=== PATIENT | female | born 1990 | race Caucasian/White ===

== ENCOUNTER → 2019-03-04 08:25 | Outpatient (CLI) | payer OTHER, SELFPAY ==
[2019-03-04 08:14] VITALS: BMI 24.4
[2019-03-04 09:19] LABS: hCG Titer Quant., Serum 368 mIU/mL (1-3)
== END ==
PROVIDERS: Referring Provider Obstetrics & Gynecology; Visit Provider Obstetrics & Gynecology
DX: N91.2 Amenorrhea, unspecified (principal)
CPT/HCPCS: 36415; 84702

== ENCOUNTER → 2019-03-04 11:04 | Outpatient (CLI) | payer OTHER, SELFPAY ==
[2019-03-04 08:14] VITALS: BMI 24.4
== END ==
PROVIDERS: Referring Provider Obstetrics & Gynecology; Visit Provider Obstetrics & Gynecology
DX: N39.0 Urinary tract infection, site not specified (principal)
CPT/HCPCS: 87086; 87088

== ENCOUNTER → 2019-03-06 07:59 | Outpatient (CLI) | payer OTHER, SELFPAY ==
[2019-03-04 08:14] VITALS: BMI 24.4
[2019-03-06 09:32] LABS: hCG Titer Quant., Serum 340 mIU/mL (1-3)
== END ==
PROVIDERS: Referring Provider Obstetrics & Gynecology; Visit Provider Obstetrics & Gynecology
DX: N91.2 Amenorrhea, unspecified (principal)
CPT/HCPCS: 36415; 84702

== ENCOUNTER 2019-03-07 07:17 | Emergency (ER) | payer OTHER, SELFPAY ==
[2019-03-04 08:14] VITALS: BMI 24.4
[2019-03-07 07:18] VITALS: BP 121/82; PULSE 88; RESP 18; TEMP 37.2; O2SAT 99; BMI 22.1
--- NOTE | 2019-03-07 07:32 | US_ITS ---
STUDY: FIRST TRIMESTER OBSTETRICAL ULTRASOUND REASON FOR EXAM: Female, 29 years old. Recent miscarriage. Examination was obtained to assess for possible retained products of conception. LMP: January 25, 2019. TECHNIQUE: Transvaginal TECHNICAL QUALITY: Adequate. PRIOR ULTRASOUND: None. FINDINGS: The uterus measures 8.1 cm x 5.0 cm x 4.1 cm the endometrium measures 12 mm in thickness and is hyperechoic. No retained products of conception are seen.. There is no demonstrated uterine fibroid. The cervix is closed. The right ovary measures 2.6 cm x 2.5 cm x 1.6 cm. There is no right ovarian cyst. There is no visualized right adnexal mass or complex lesion. The left ovary measures 2.0 cm x 1.9 cm x 1.2 cm. There is no left ovarian cyst. There is no visualized left adnexal mass or complex lesion. There is no fluid in the cul de sac. US/Transvaginal w/Preg US IMPRESSION: No sonographic evidence for retained products of conception. Electronically Signed: Tima Bill, at 8:59 EDT , Service support ,
[2019-03-07] MEDS: 0.9% Normal Saline 1,000 ML 1000 ML IV (07:44)
[2019-03-07 07:56] LABS: Absolute Lymphocyte Count 1.44 X10^3/uL (0.83-4.51); Absolute Neutrophil Count 6.3 X10^3/uL (2.0-7.7); Basophil# 0.02 X10^3/uL; Basophil% 0.2 % (0-1); Eosinophil# 0.02 X10^3/uL; Eosinophils% 0.2 % (0-5); Hematocrit 37.5 % (37-47); Hemoglobin 12.9 g/dL (12.0-15.0); Lymphocyte # 1.44 X10^3/ul (4.0); Lymphocyte % 17.5 % (19-41); Mean Corp Hgb Conc 34.4 g/dL (32-36); Mean Corpuscular Hgb 32.3 pg (27.0-32.0); Mean Corpuscular Volume 93.8 fL (81-99); Mean Platelet Vol. 9.8 fl (6.2-12.0); Monocyte# 0.45 X10^3/uL; Monocyte% 5.5 % (0-10); NRBC Flagged by Analyzer 0 % (0-5); Neutrophil # 6.27 X10^3/uL (2.7-7.7); Neutrophil % 76.4 % (47-70); Platelet Count 251 K/mm3 (150-450); RBC Distribution Width CV 11.5 % (11.6-14.6); RBC Distribution Width SD 39.1 fl (35.1-43.9); White Blood Count 8.2 K/mm3 (4.4-11.0)
--- NOTE | 2019-03-07 07:59 | ED.DCSUM_ITS ---
- ER Visit Summary Date of Service: 03/07/19 Chief Complaint: Weakness History of Present Illness: The patient is a 29 F who presents with generalized weakness, decreased sleep, decreased PO intake, and increasing vaginal bleeding. Last week, she found that she was . She estimated that she was around 5 weeks by last menstrual period. She was having some bleeding and cramping as well as UTI symptoms. She had a serum hCG in the 300s on Sunday earlier this week, and then 2 days later her numbers have dropped by about 40 points. She was advised that she was likely having a miscarriage. She says this is her first . She does not know her blood type. She came to the ED today because her symptoms are worsening and she called her [facility]. She did not get a hold of her [employer] [facility] [facility], and so she came to the ED. Physical Examination: Afebrile and vital signs unremarkable. Alert and oriented. Heart regular. Lungs clear. Abdomen soft and nontender. Skin appears unremarkable. Test Results: We will check basic labs, serum quant, type and screen. Will also check an ultrasound given her worsening bleeding and increasing symptoms. Emergency Department Course and Treatment: Patient was treated with IV fluids. N.p.o. We will check labs and ultrasound. Will discuss with [facility]. CBC normal. Rh+. Quant is 286. Labs otherwise normal. Vitals stable. Ultrasound shows no evidence of retained products. Patient was discussed with Dr. Wilde. No further recommendations today. Patient may safely be discharged home. Return for worsening bleeding or pain. This does not sound like an ectopic . Patient will follow-up in the office next week. Treatment Plan: As above Disposition: Discharge Impression: 1. Miscarriage This note was generated with [employer]versation [employer] software. It may contain incorrect words, spelling, and punctuation that were not noted in review of the chart prior to signing ED Disposition - Plan for ED Patient: Referrals: Care Physician,No Primary [Primary Care Provider] -
[2019-03-07 08:06] LABS: Anion Gap 9 (5-15); BUN 11 mg/dL (7-18); BUN/Creat Ratio 14.3 RATIO (10-20); Calcium,Total 9.2 mg/dL (8.5-10.1); Chloride 109 mmol/L (98-107); Creatinine, Serum 0.77 mg/dL (0.55-1.02); EST Glomerular Filtration Rate 95 mL/min (>60); Est Glom Filt Rate - Afr Amer 115 mL/min (>60); Estimated Creatinine Clearance 89.98 ml/min; Glucose 95 mg/dL (74-106); Potassium 3.5 mmol/L (3.5-5.1); Sodium Level 142 mmol/L (136-145)
[2019-03-07 08:11] LABS: hCG Titer Quant., Serum 286 mIU/mL (1-3)
--- NOTE | 2019-03-07 09:16 | ED.DEP ---
ED Disposition - Plan for ED Patient: Instructions: Miscarriage Referrals: Brea Wilde MD [STAFF PHYSICIAN] -
[2019-03-07 09:43] VITALS: BP 110/70; PULSE 78; RESP 17; O2SAT 97
== END 2019-03-07 09:44 | disposition home or self-care (01) ==
PROVIDERS: Emergency Provider Emergency Medicine
DX: O03.9 Complete or unspecified spontaneous abortion without complication (principal)
CPT/HCPCS: 76817; 80048; 84702; 85025; 86900; 86901; 99283; J7030; A4216

== ENCOUNTER → 2019-03-26 07:51 | Outpatient (CLI) | payer OTHER, SELFPAY ==
[2019-03-07 07:18] VITALS: BMI 22.1
[2019-03-26 09:14] LABS: hCG Titer Quant., Serum 5 mIU/mL (1-3)
== END ==
PROVIDERS: Nurse Practitioner Women's Health; Referring Provider Obstetrics & Gynecology; Visit Provider Obstetrics & Gynecology
DX: N91.2 Amenorrhea, unspecified (principal)
CPT/HCPCS: 36415; 84702

== ENCOUNTER → 2019-07-21 13:42 | Outpatient (CLI) | payer OTHER, SELFPAY ==
[2019-07-21 11:39] VITALS: BMI 22.1
[2019-07-21 16:30] LABS: Chlamydia Trachomatis by PCR Negative (Negative); Neisserai gonorrhoeae by PCR Negative (Negative); Probe Check PASS; Sample Adequacy Control PASS; Specimen Processing Control PASS
[2019-07-24 11:08] LABS: HPV Reflexed? NOT INDICATED
== END ==
PROVIDERS: Visit Provider Nurse Practitioner Women's Health
DX: Z34.90 Encounter for supervision of normal pregnancy, unspecified, unspecified trimester (principal); Z12.4 Encounter for screening for malignant neoplasm of cervix
CPT/HCPCS: 87086; 87088; 87491; 87591; 88175; G0145

== ENCOUNTER → 2019-08-22 08:55 | Outpatient (CLI) | payer OTHER, SELFPAY ==
[2019-08-22 08:33] VITALS: BMI 22.1
[2019-08-22 09:18] LABS: Absolute Lymphocyte Count 1.56 X10^3/uL (0.83-4.51); Absolute Neutrophil Count 8.3 X10^3/uL (2.0-7.7); Basophil# 0.02 X10^3/uL; Basophil% 0.2 % (0-1); Eosinophil# 0.07 X10^3/uL; Eosinophils% 0.7 % (0-5); Hematocrit 34.6 % (37-47); Lymphocyte # 1.56 X10^3/ul (4.0); Lymphocyte % 14.8 % (19-41); Mean Corp Hgb Conc 34.7 g/dL (32-36); Mean Corpuscular Hgb 32.6 pg (27.0-32.0); Mean Platelet Vol. 9.6 fl (6.2-12.0); Monocyte# 0.52 X10^3/uL; Monocyte% 4.9 % (0-10); NRBC Flagged by Analyzer 0 % (0-5); Neutrophil # 8.32 X10^3/uL (2.7-7.7); Neutrophil % 78.7 % (47-70); Platelet Count 220 K/mm3 (150-450); RBC Distribution Width CV 12.3 % (11.6-14.6); RBC Distribution Width SD 42.4 fl (35.1-43.9); Red Blood Count 3.68 M/mm3 (4.2-5.4); White Blood Count 10.6 K/mm3 (4.4-11.0)
[2019-08-22 10:56] LABS: HIV - WCH Non-Reactive (Nonreactive); Hepatitis B Surface Antigen Non-Reactive (Nonreactive); Hepatitis C Antibody Non-Reactive (Nonreactive); Rubella IgG 75.4 IU/mL
[2019-08-28 00:26] LABS: Rapid Plasmin Reagin (RPR) NONREACTIVE (NONREACTIVE)
== END ==
PROVIDERS: Nurse Practitioner Women's Health; Referring Provider Obstetrics & Gynecology; Visit Provider Obstetrics & Gynecology
DX: Z34.90 Encounter for supervision of normal pregnancy, unspecified, unspecified trimester (principal)
CPT/HCPCS: 36415; 85025; 86592; 86703; 86762; 86803; 86850; 86900; 86901; 87340

== ENCOUNTER → 2019-12-02 08:07 | Outpatient (CLI) | payer OTHER, SELFPAY ==
[2019-11-05 10:53] VITALS: BMI 22.1
[2019-12-02 08:39] LABS: Absolute Lymphocyte Count 1.83 X10^3/uL (0.83-4.51); Absolute Neutrophil Count 8.1 X10^3/uL (2.0-7.7); Basophil# 0.02 X10^3/uL; Basophil% 0.2 % (0-1); Eosinophil# 0.08 X10^3/uL; Eosinophils% 0.7 % (0-5); Hematocrit 30.5 % (37-47); Hemoglobin 10.2 g/dL (12.0-15.0); Lymphocyte # 1.83 X10^3/ul (4.0); Lymphocyte % 16.9 % (19-41); Mean Corp Hgb Conc 33.4 g/dL (32-36); Mean Corpuscular Hgb 32.8 pg (27.0-32.0); Mean Corpuscular Volume 98.1 fL (81-99); Mean Platelet Vol. 10.2 fl (6.2-12.0); Monocyte# 0.66 X10^3/uL; Monocyte% 6.1 % (0-10); NRBC Flagged by Analyzer 0 % (0-5); Neutrophil # 8.12 X10^3/uL (2.7-7.7); Neutrophil % 75.3 % (47-70); Platelet Count 228 K/mm3 (150-450); RBC Distribution Width CV 12.6 % (11.6-14.6); RBC Distribution Width SD 45.1 fl (35.1-43.9); Red Blood Count 3.11 M/mm3 (4.2-5.4); White Blood Count 10.8 K/mm3 (4.4-11.0)
[2019-12-02 08:53] LABS: Glucose Challenge Gest 1H 50g 105 mg/dL (70-140)
== END ==
PROVIDERS: Referring Provider Obstetrics & Gynecology; Visit Provider Obstetrics & Gynecology
DX: Z34.80 Encounter for supervision of other normal pregnancy, unspecified trimester (principal)
CPT/HCPCS: 36415; 82950; 85025

== ENCOUNTER → 2020-01-15 09:27 | Outpatient (CLI) | payer OTHER, SELFPAY ==
[2020-01-15 09:24] VITALS: BMI 22.1
[2020-01-15 09:42] LABS: Absolute Lymphocyte Count 1.76 X10^3/uL (0.83-4.51); Absolute Neutrophil Count 8.5 X10^3/uL (2.0-7.7); Basophil# 0.02 X10^3/uL; Basophil% 0.2 % (0-1); Eosinophil# 0.07 X10^3/uL; Eosinophils% 0.6 % (0-5); Hematocrit 33.8 % (37-47); Hemoglobin 11.4 g/dL (12.0-15.0); Lymphocyte # 1.76 X10^3/ul (4.0); Lymphocyte % 15.8 % (19-41); Mean Corp Hgb Conc 33.7 g/dL (32-36); Mean Corpuscular Hgb 33.7 pg (27.0-32.0); Mean Platelet Vol. 10.3 fl (6.2-12.0); Monocyte# 0.62 X10^3/uL; Monocyte% 5.6 % (0-10); NRBC Flagged by Analyzer 0 % (0-5); Neutrophil # 8.53 X10^3/uL (2.7-7.7); Neutrophil % 76.8 % (47-70); Platelet Count 211 K/mm3 (150-450); RBC Distribution Width CV 14.1 % (11.6-14.6); RBC Distribution Width SD 51.5 fl (35.1-43.9); Red Blood Count 3.38 M/mm3 (4.2-5.4); White Blood Count 11.1 K/mm3 (4.4-11.0)
== END ==
PROVIDERS: Referring Provider Obstetrics & Gynecology; Visit Provider Obstetrics & Gynecology
DX: D50.9 Iron deficiency anemia, unspecified (principal)
CPT/HCPCS: 36415; 85025

== ENCOUNTER → 2020-02-02 11:58 | Outpatient (CLI) | payer OTHER, SELFPAY ==
[2020-02-02 09:16] VITALS: BMI 22.1
== END ==
PROVIDERS: Referring Provider Obstetrics & Gynecology; Visit Provider Obstetrics & Gynecology
DX: Z34.80 Encounter for supervision of other normal pregnancy, unspecified trimester (principal)
CPT/HCPCS: 87081

== ENCOUNTER 2020-02-27 11:45 | Inpatient (IN) | payer OTHER, SELFPAY ==
[2020-02-27] VITALS (38 sets, daily range): BP systolic 107–176; BP diastolic 55–117; PULSE 39–134; TEMP 36.1–37; O2SAT 84–100; BMI 22.1; BMI 29.7
[2020-02-27 12:37] LABS: Absolute Lymphocyte Count 1.35 X10^3/uL (0.83-4.51); Absolute Neutrophil Count 7.1 X10^3/uL (2.0-7.7); Basophil# 0.01 X10^3/uL; Basophil% 0.1 % (0-1); Eosinophil# 0.08 X10^3/uL; Eosinophils% 0.9 % (0-5); Hemoglobin 12.4 g/dL (12.0-15.0); Lymphocyte # 1.35 X10^3/ul (4.0); Lymphocyte % 14.6 % (19-41); Mean Corp Hgb Conc 34.4 g/dL (32-36); Mean Corpuscular Hgb 33.8 pg (27.0-32.0); Mean Corpuscular Volume 98.1 fL (81-99); Mean Platelet Vol. 10.8 fl (6.2-12.0); Monocyte# 0.64 X10^3/uL; Monocyte% 6.9 % (0-10); NRBC Flagged by Analyzer 0 % (0-5); Neutrophil # 7.07 X10^3/uL (2.7-7.7); Neutrophil % 76.7 % (47-70); Platelet Count 201 K/mm3 (150-450); RBC Distribution Width CV 13.2 % (11.6-14.6); RBC Distribution Width SD 47.5 fl (35.1-43.9); Red Blood Count 3.67 M/mm3 (4.2-5.4); White Blood Count 9.2 K/mm3 (4.4-11.0)
[2020-02-27] MEDS: 0.9% Saline Lock 10 ML Syringe IV (21:30)
[2020-02-27] MEDS: Lactated Ringers 500 ML 999 ML IV (21:50)
[2020-02-27] MEDS: Lactated Ringers 1,000 ML 50 ML IV (21:50)
[2020-02-27] MEDS: fentaNYL-bupivacaine (epidural) 100 ML BAG EPIDURAL (22:47)
[2020-02-28] VITALS (62 sets, daily range): BP systolic 99–125; BP diastolic 53–76; PULSE 71–125; RESP 16–18; TEMP 36.5–37.6; O2SAT 93–100
--- NOTE | 2020-02-28 01:45 | PCM.HPOB.BLA ---
- Problem List (1) Dysthymia Status: Acute Comment: zoloft counseling; stable (2) Influenza vaccination declined Status: Acute Comment: 02/27/2020sc (3) Status: Acute Qualifiers: Comment: Declines carrier, genetic, and ntd screening. Anatomy normal (4) Supervision of other normal Status: Acute Comment: PRR JOSSELIN 02/28/20 girl Tashia Spouse:Dung (5) SROM (spontaneous rupture of membranes) Status: Acute History and Physical Date of Admission: 02/28/20 Intake Vital Signs 02/27/20 BMI 22.1 02/27/20 Height 5 ft 3 in 02/27/20 Weight: 169 lb 02/27/20 BMI 29.9 02/27/20 BP 120/88 H 01/15/20 BMI 22.1 Intake Visit Reasons: 39 WK OB Chief Complaint: est ob Community Health Worker Required: No Is patient in pain?: No Allergies No Known Allergies Allergy (Verified 02/27/20 09:51) Medications prenat.vits,efren,arc-kwvr-fnvce 1 tab PO DAILY 07/21/19 [History Confirmed 02/27/20] sertraline 50 mg tablet 50 mg PO DAILY #90 tab 10/10/19 [Rx Confirmed 02/27/20] ferrous sulfate 325 mg (65 mg iron) tablet 325 mg PO DAILY 12/15/19 [History Confirmed 02/27/20] Last Menstral Period: 05/24/19 Zika: Zika virus screening: Negative : No PFSH PFSH Medical History (Acute) Depression (Acute) Hx of one miscarriage (Acute) Family History Grandfather Cancer lung Colon cancer Father Myocardial infarction Aunt Cancer lung Social History (Updated 02/27/20 @ 10:[address] Brea Wilde MD) Smoking Status: Never smoker alcohol intake: current details: social substance use type: does not use caffeine: Yes what type of physical activity do you participate in: walking seatbelt use: always do you feel safe at home: Yes additional social history: Dung- Works at [employer] Pregancy History 2 Elective abortions Hx Para 0 Spontaneous abortions 1 Hx # Term Pregnancies Ectopic pregnancies Hx # Pregnancies Multiple births # of living children HPI 39 WK OB: Details: KARLEE ROTHMAN is a 30 year old who presents for routine OB visit. She is a @ 39w6d presents with SROM clear fluid to l and d. OB Visit JOSSELIN Calculator Estimated Delivery Date Method Current WG Current Estimate 02/28/20 Ultrasound #1 39w 6d Other Estimates 02/28/20 LMP (Certain) 39w 6d Expected Delivery Route/Plan Labor support person Dung CB and classes complete Pain management preference option minimal intervention, Desires tub in labor. cut cord/dad catch maybe yes PP control plan discuss possible routes of delivery and associated risks r/b/i/a to operative vaginal delivery including forceps and vacuum assisted delivery discussed. Also discussed indications for section. special requests: plan scanned into chart: Delay/avoid AROM as much as possible. Avoid immediate PP pitocin (knows may be needed if heavy bleeding). Declines hep B vaccine and eye ointment for baby, wants to wait until baby at home to give bath. Specific Issue/Plans flu vaccine declined tdap vaccine given rhogam na LARC form signed declines movement and labor precautions reviewed. Problem list reviewed and updated with the most current details and appropriate orders placed. Continue routine care and follow up unless otherwise noted in visit notes/problem list details. Initial Weight: 134 lb Date EGA Weight BP Urine Prot Glucose FHR FuHt Pres Dilation Effaced St Visit Note 07/21/19 8w 2d 134 lb 6 oz (+6 oz) 90/60 168 08/22/19 12w 6d 134 lb (+0 oz) 96/60 Negative Negative 160 SM- no vb cramping, still some nausea 09/16/19 16w 3d 138 lb (+4 lb) 116/82 Negative Negative 150 SM- no vb cramping 11/05/19 23w 4d 148 lb 8 oz (+14 lb 8 oz) 110/64 Negative Negative 150 SM- no vb cramping. 12/02/19 27w 3d 156 lb (+22 lb) 104/70 Negative Negative 143 27 MH-No vB, LOF. Good FM. 28 wk labs and tdap. 12/15/19 29w 2d 160 lb (+26 lb) 122/70 Negative Negative 140 29 SM- no vb lof good fm no regular ctx 12/29/19 31w 2d 161 lb (+27 lb) 110/60 Negative Negative 140 32 SM- no vb lof good fm no regular ctx 01/15/20 33w 5d 163 lb (+29 lb) 104/70 Negative Negative 140 34 SM- no vb lof good fm no regular ctx 01/26/20 35w 2d 165 lb (+31 lb) 120/84 Negative Negative 150 35 SM- no vb lof good fm no regular ctx 02/02/20 36w 2d 164 lb (+30 lb) 120/72 Negative Negative 125 36 GP- no vb, lof, dfm, contractions. Planning on making plan this weekend. GP- no vb, lof, dfm, contractions. Labor precautions reviewed. GP- no vb, lof, dfm, contractions. Labor precautions reviewed. GBS done today. 02/13/20 37w 6d 164 lb (+30 lb) 104/66 130 37 Cephalic 1 50 -2 GP - No LOF, VB, DFM, ctx. plan reviewed today and scanned into chart. 02/18/20 38w 4d 166 lb (+32 lb) 120/66 Negative Negative 135 38 Cephalic 1 60 -2 GP - No LOF, DFM, VB. No regular contractions. Declined membrane sweeping - wants to go into labor naturally. 02/27/20 39w 6d 169 lb (+35 lb) 120/88 Negative Negative 130 39 Cephalic 3 70 -1 SM- no vb good fm, upon examination SROM clear fluid copious amounts, counseled regarding risks of cord prolapse and infeciton, patient prefers minimal interveniton, will plan to go home and come right back to l and d ACOG First Trimester First Trimester: Discussed Second Trimester Second Trimester: Signs and Symptoms of Labor, Selecting a care provider, Reproductive Life Planning, Care Planning, Tobacco Cessation, Depression/Anxiety and Intimate Partner Violence Third Trimester Third Trimester: Pain Management Plans, Labor support person(s), Movement Monitoring and Labor Signs; discussed Immediate Larc Diagnostics Diagnostics Diagnostics Blood Type AB POSITIVE 08/22/19 Antibody Screen NEGATIVE 08/22/19 Glucose 1 Hr 50 gm 105 mg/dL (70-140) 12/02/19 HIV 1&2 Antibody Non-Reactive (Nonreactive) 08/22/19 Rubella IgG Antibody 75.4 IU/mL 08/22/19 Hgb 11.4 g/dL (12.0-15.0) L 01/15/20 Hct 33.8 % (37-47) L 01/15/20 RPR NONREACTIVE (NONREACTIVE) 08/22/19 Details: HIV: Urine Culture: Sequential Screen: NIPT Screen: ROS Const Reports system reviewed and no additional complaints, except as docu Card Reports system reviewed and no additional complaints, except as docu Resp Reports system reviewed and no additional complaints, except as docu GI Reports system reviewed and no additional complaints, except as docu, Reports nausea Reports system reviewed and no additional complaints, except as docu Musc Reports system reviewed and no additional complaints, except as docu Exam Const General: cooperative, healthy appearing, comfortable, anxious HENMT Head: normal to inspection Nose: external nose normal Face and sinus: normal facial exam Neck Neck: normal visual inspection, full ROM, no lymphadenopathy Thyroid: thyroid normal Chest Chest palpation & inspection: normal inspection of the chest Resp Effort & Inspection: normal respiratory effort GI Inspection: normal to inspection Palpation: soft, other (gravid uterus) Other: vertex and appropriate size for gestational age Other: Cervical Exam: Extrem General: pedal edema Results POC Urinalysis 2 Dip (Clinic) Office Urine Glucose Negative Last Edit by Ebony Cano on 02/27/20 09:55 Office Urine Protein Negative Last Edit by Ebony Cano on 02/27/20 09:55 Assessment & Plan Problems 1. Dysthymia F34.1 zoloft counseling; stable 2. Z34.90 Declines carrier, genetic, and ntd screening. Anatomy normal 3. Supervision of other normal Z34.80 PRR JOSSELIN 02/28/20 girl Tashia Spouse:Dung López prefers minimal intervention- discussed preferences. to l and d Orders Orders: POC Urinalysis 2 Dip (Clinic) Today Coding Level of Care Code OB Routine Diagnoses Dysthymia F34.1 Z34.90 Supervision of other normal Z34.80
--- NOTE | 2020-02-28 01:46 | PCM.PN.BLA ---
Progress Note heart tones 130 moderate variability reactive no decelerations toco every 2-3 minutes patient comfortable with epidural. Continue expectant management and reevaluate in 1 hour STROKE Vital Signs/Narrative: Vital Signs Temp Pulse BP Pulse Ox 02/28/20 00:55 101 H 100 02/28/20 00:54 99.1 F 100 02/28/20 00:28 82 107/56 L 02/28/20 00:01 92 99 02/27/20 23:58 88 126/60 H 02/27/20 23:56 86 100 02/27/20 23:51 109 H 100 02/27/20 23:46 92 92 02/27/20 23:44 97.2 F L 85 93 02/27/20 23:41 81 97 02/27/20 23:36 120 H 86 02/27/20 23:35 84 02/27/20 23:31 81 133/61 H 98 02/27/20 23:30 134 H 176/117 H 02/27/20 23:26 87 98 02/27/20 23:25 132/68 H 02/27/20 23:21 99 98 02/27/20 23:19 125 H 138/61 H 02/27/20 23:16 112 H 100 02/27/20 23:11 110 H 100 02/27/20 23:06 118 H 100 02/27/20 23:03 109 H 90 02/27/20 23:01 101 H 100 02/27/20 22:56 95 93 02/27/20 22:53 74 116/79 02/27/20 22:51 106 H 99 02/27/20 22:50 114/76 02/27/20 22:45 77 100 02/27/20 22:43 84 116/87 H 02/27/20 22:40 83 100 02/27/20 22:39 119/89 H 02/27/20 22:35 93 100 02/27/20 22:25 97.4 F L
[2020-02-28] MEDS: Lactated Ringers 1,000 ML 200 ML IV ×2 (02:07→07:03)
[2020-02-28] MEDS: fentaNYL-bupivacaine (epidural) 100 ML BAG EPIDURAL (02:56)
[2020-02-28] MEDS: Lactated Ringers 500 ML 999 ML IV (05:02)
[2020-02-28] MEDS: 0.9% Saline Lock 10 ML Syringe IV ×2 (07:27→12:09)
[2020-02-28] MEDS: Ondansetron 4 MG/2 ML Vial IV (07:27)
[2020-02-28] MEDS: Oxytocin 30 units/NS 500 ml 30 UNITS/500 ML IV.SOLN IV (09:24)
--- NOTE | 2020-02-28 09:40 | PCM.OPRPT ---
Problem List (1) Dysthymia Status: Acute Comment: zoloft counseling; stable (2) Influenza vaccination declined Status: Acute Comment: 02/27/2020sc (3) Status: Acute Qualifiers: Comment: Declines carrier, genetic, and ntd screening. Anatomy normal (4) Supervision of other normal Status: Acute Comment: PRR JOSSELIN 02/28/20 girl Tashia Spouse:Dung (5) SROM (spontaneous rupture of membranes) Status: Acute Vaginal Delivery Maternal Presentation: Active Labor, Spontaneous Rupture of Membranes 30 yo @ 39w6d presents IAL Amniotic Membrane Rupture Type: Spontaneous Amniotic Fluid Description: Clear Final JOSSELIN: 02/28/20 Gestational age: 40 Weeks and 1 Days Date of Procedure: 02/28/20 Pre-Operative Diagnosis: ial srom Post-Operative Diagnosis: same Surgery/ Procedure Performed: Vacuum Assisted Vaginal Delivery - Secondary to maternal exhaustion and maternal request Type of Anesthesia: Epidural Description of Procedure: Patient began pushing and after several hours she became more uncomfortable with her epidural and was experiencing fatigue and requested vacuum assistance for delivery. Patient and her were counseled regarding the risks benefits and alternatives of operative vaginal delivery and they wish to proceed. The head was EMILY in the +3 station and the vacuum was applied and appropriate pressure within the green zone applied. With 2 pulls during 2 contractions with 1 pop-off the patient pushed and delivered the head in the [EMILY] presentation. The head was delivered atraumatically [and a loose nuchal cord ?1 was identified and easily reduced over the 's head]. The anterior and posterior shoulders delivered without complication followed by the rest of the infant and the infant was placed on the maternal abdomen. Delayed cord clamping was employed for approximately 60 seconds. Cord was clamped and cut and gentle traction was applied to the cord and the placenta delivered spontaneously immediately following it was noted to be intact with three-vessel cord. The perineum and vagina were inspected and noted to have a small first-degree perineal laceration and first-degree vaginal laceration on the right side which were repaired in the usual fashion with 3-0 Vicryl Rapide. EBL was 200 cc. Patient and tolerated delivery well. Presentation: EMILY Placental Delivery Description: Spontaneous Placenta Disposition: [facility] Cord Vessel Description: 3 Vessels Cord Entanglement: Around neck x 1, loose Estimated Blood Loss: 200 A gender: Female Episiotomy Description: None Laceration: Perineal Extension/lac, 1st degree Medications given after delivery: IV Pitocin Complications: None Multi Select Codes - Urinary/Genital Urinary/Genital CPT Codes: 83102 Vaginal Delivery global pkg - operative with vacuum
[2020-02-28] MEDS: Oxytocin 30 units/NS 500 ml 30 UNITS/500 ML IV.SOLN 334 UNITS IV (10:33)
[2020-02-28] MEDS: Naproxen 250 MG Tablet 500 MG PO (12:08)
[2020-02-28] MEDS: Ferrous Sulfate 325 MG Tablet PO (16:06)
[2020-02-28] MEDS: Prenatal Vits Tablet 1 TABLET PO (18:38)
[2020-02-28] MEDS: Sertraline 50 MG Tablet PO (20:41)
[2020-02-29 05:12] VITALS: BP 105/61; PULSE 83; RESP 20; TEMP 36.5
[2020-02-29 05:14] VITALS: BP 105/61; PULSE 83
[2020-02-29 08:31] VITALS: BP 113/60; PULSE 100; RESP 16; TEMP 36.7
[2020-02-29 08:32] VITALS: BP 113/60; PULSE 100
--- NOTE | 2020-02-29 10:28 | PN.OBGYN_ITS ---
Patient Problems: Active and Suspected Problems (Last Reviewed 02/27/20 @ 09:52 by Ebony Cano) SROM (spontaneous rupture of membranes) (Acute) Subjective: Patient doing well without complaints. Tolerating PO. Ambulating and voiding without difficulty. breast feeding well. Denies chest pain, shortness of breath, calf pain/swelling, fevers, chills, lightheadedness - Physical Exam Vitals/I&O's: Vital Signs Temp Pulse Resp BP Pulse Ox 98.1 F 100 16 113/60 99 02/29/20 08:31 02/29/20 08:32 02/29/20 08:31 02/29/20 08:32 02/28/20 11:52 Oxygen Delivery Method Room Air Weight: 167 lb 15.876 oz Body Mass Index (BMI) 29.7 Intake and Output for Last 24 Hours 02/27/20 02/28/20 02/29/20 23:59 23:59 23:59 Intake Total 505 / 505 5018.64 / 5018.64 Output Total 200 / 200 2400 / 2400 Balance 305 / 305 2618.64 / 2618.64 General: Alert, Oriented x3 Current Medications Acetaminophen (Tylenol) 1,000 mg PO Q8H PRN PRN PRN Reason: Pain Score 1-3/10 Bisacodyl (Dulcolax) 10 mg RECTAL UD PRN PRN Reason: If no BM Dibucaine (Dibucaine) 1 applic TOPICAL TID PRN PRN; Protocol PRN Reason: Discomfort Ferrous Sulfate (Ferrous Sulfate) 325 mg PO DAILY@1200 Y[facility] Last Admin: 02/28/20 16:06 Dose: 325 mg Documented by: Hydrocortisone (Hytone) 1 applic TOPICAL TID PRN PRN; Protocol PRN Reason: Discomfort Methylergonovine Maleate (Methergine) 0.2 mg IM X1 PRN PRN Reason: Excess bleeding/uterine atony Naproxen (Naprosyn) 500 mg PO Q8H PRN PRN PRN Reason: Pain Score 1-3/10 Last Admin: 02/28/20 12:08 Dose: 500 mg Documented by: Ondansetron HCl (Zofran) 4 mg IV Q4H PRN PRN PRN Reason: Nausea Oxycodone HCl (Oxyir) 5 - 10 mg PO Q4H PRN PRN PRN Reason: Pain Score 4-10/10 Multivit/Folic Acid/Iron (Prenatabs Fa) 1 tablet PO DAILY@1800 [facility] Last Admin: 02/28/20 18:38 Dose: 1 tablet Documented by: Senna/Docusate Sodium (Senokot-S, Lona-Colace) 1 - 2 tablet PO DAILY PRN PRN PRN Reason: Constipation Sertraline HCl (Zoloft) 50 mg PO QHS [facility] Last Admin: 02/28/20 20:41 Dose: 50 mg Documented by: Simethicone (Mylicon) 80 mg PO PCHS PRN PRN Reason: Indigestion/Stomach pain Sodium Chloride () 5 - 15 ml IV UD PRN PRN Reason: SALINE FLUSH Last Admin: 02/28/20 12:09 Dose: 10 ml Documented by: Medical Necessity - Tobacco Use Smoking Status: Never smoker Assessment/Plan All Active Problems (Last Reviewed 02/27/20 @ 09:52 by Ebony Cano) SROM (spontaneous rupture of membranes) (Acute) Influenza vaccination declined (Acute) Supervision of other normal (Acute) (Acute) Dysthymia (Acute) Influenza A (Resolved) Iron (Fe) deficiency anemia (Resolved) Complete (Ruled-out) s/p PPD # 1 1. routine post delivery care 2. breast feeding- support given 3. rh positive 4. rubella immune
--- NOTE | 2020-02-29 10:28 | DCINST_ITS ---
Discharge Diet: No Restrictions Discharge Activity: Return to Normal Activity, May not drive while taking narcotic pain medications., May Shower May resume sexual activity in: 4-6 weeks Call your doctor if your incision/area has: Continuous Slow Oozing, Sudden Increased Bleeding, Increased Pain/ Swelling, Increased Redness, Foul Smelling Discharge Additional Instructions: If you experience any of the following, contact your healthcare provider. * Bleeding that soaks a pad every hour for 2 hours * Fever 100.4 or higher * Unrelieved incision or abdominal pain * Swelling, redness, discharge or bleeding from your incision or episiotomy site * Your incision begins to separate * Problems urinating (including inability to urinate or burning while urinating). * Visual changes * Severe headache * Flu-like symptoms * Pain or redness in one of both of your breasts * Pain, warmth, tenderness or swelling in your legs, especially the calf area * Frequent nausea and vomiting * Symptoms of depression or anxiety If you experience any of the following, call 911 or go to the nearest Emergency Room. * Chest pain * Problems breathing * Seizure activity * Partial or complete paralysis of a body part, slurred speech, weakness or drooping of the face, or a sudden inability to walk or hold your balance Allergies/Adverse Reactions: Allergies No Known Allergies Allergy (Verified 02/27/20 09:51) Medications to take at Discharge prenat.vits,efren,vjo-ubcf-cmpra 1 tab PO DAILY 07/21/19 ferrous sulfate 325 mg (65 mg iron) tablet 325 mg PO DAILY 12/15/19 Sertraline HCl [Zoloft] 50 mg PO DAILY 02/27/20 Please Follow Up With: Brea Wilde MD - [phone] When: Call to make an appointment with your doctor in 6 weeks. If you had elevated Blood pressure or 4th degree laceration you will need to be seen in 2 weeks. Primary Care Physician: Care Physician,No Primary [Primary Care Provider] - Test Results: Test results from this visit will be discussed in further detail at your follow- up appointment, if applicable.
--- NOTE | 2020-02-29 10:28 | PCM.DCVAG ---
Discharge Diet: No Restrictions Discharge Activity: Return to Normal Activity, May not drive while taking narcotic pain medications., May Shower May resume sexual activity in: 4-6 weeks Call your doctor if your incision/area has: Continuous Slow Oozing, Sudden Increased Bleeding, Increased Pain/ Swelling, Increased Redness, Foul Smelling Discharge Additional Instructions: If you experience any of the following, contact your healthcare provider. Bleeding that soaks a pad every hour for 2 hours Fever 100.4 or higher Unrelieved incision or abdominal pain Swelling, redness, discharge or bleeding from your incision or episiotomy site Your incision begins to separate Problems urinating (including inability to urinate or burning while urinating). Visual changes Severe headache Flu-like symptoms Pain or redness in one of both of your breasts Pain, warmth, tenderness or swelling in your legs, especially the calf area Frequent nausea and vomiting Symptoms of depression or anxiety If you experience any of the following, call 911 or go to the nearest Emergency Room. Chest pain Problems breathing Seizure activity Partial or complete paralysis of a body part, slurred speech, weakness or drooping of the face, or a sudden inability to walk or hold your balance Allergies/Adverse Reactions: Allergies No Known Allergies Allergy (Verified 02/27/20 09:51) Medications to take at Discharge prenat.vits,efren,rou-olvz-dkhca 1 tab PO DAILY 07/21/19 ferrous sulfate 325 mg (65 mg iron) tablet 325 mg PO DAILY 12/15/19 Sertraline HCl [Zoloft] 50 mg PO DAILY 02/27/20 Please Follow Up With: Brea Wilde MD - [phone] When: Call to make an appointment with your doctor in 6 weeks. If you had elevated Blood pressure or 4th degree laceration you will need to be seen in 2 weeks. Primary Care Physician: Care Physician,No Primary [Primary Care Provider] - Test Results: Test results from this visit will be discussed in further detail at your follow-up appointment, if applicable.
== END 2020-02-29 13:45 | disposition home or self-care (01) | DRG 807 ==
PROVIDERS: Admitting Provider Obstetrics & Gynecology; Visit Provider Obstetrics & Gynecology
DX: O75.81 Maternal exhaustion complicating labor and delivery (principal); Z37.0 Single live birth; O70.0 First degree perineal laceration during delivery; O69.81X0 Labor and delivery complicated by cord around neck, without compression, not applicable or unspecified; O99.344 Other mental disorders complicating childbirth; F34.1 Dysthymic disorder; O99.02 Anemia complicating childbirth; D50.9 Iron deficiency anemia, unspecified; Z28.21 Immunization not carried out because of patient refusal; Z3A.40 40 weeks gestation of pregnancy
CPT/HCPCS: 59025; 59050; 85025; 86850; 86900; 86901; J7120; A4216; J2405

== ENCOUNTER 2021-06-28 12:40 | Outpatient (CLI) | payer OTHER, SELFPAY | END 2021-06-28 23:59 | disposition short-term general hospital (02) | LOC: LABSPEC 12:41 | PROVIDERS: Referring Provider Physician Assistant Surgical; Visit Provider Physician Assistant Surgical | DX: Z11.52 Encounter for screening for COVID-19 (principal) | CPT/HCPCS: 87635; U0003; U0005 ==

== ENCOUNTER 2021-09-05 08:03 | Outpatient (CLI) | payer OTHER, SELFPAY ==
[2021-09-05 08:25] LABS: Absolute Lymphocyte Count 2.01 X10^3/uL (0.83-4.51); Absolute Neutrophil Count 4.2 X10^3/uL (2.0-7.7); Basophil# 0.02 X10^3/uL; Basophil% 0.3 % (0-1); Eosinophil# 0.06 X10^3/uL; Eosinophils% 0.9 % (0-5); Hemoglobin 13.2 g/dL (12.0-15.0); Lymphocyte # 2.01 X10^3/ul (0.83-4.51); Lymphocyte % 30.3 % (19-41); Mean Corp Hgb Conc 34.7 g/dL (32-36); Mean Corpuscular Hgb 32.4 pg (27.0-32.0); Mean Corpuscular Volume 93.4 fL (81-99); Mean Platelet Vol. 9.7 fl (6.2-12.0); Monocyte% 4.5 % (0-10); NRBC Flagged by Analyzer 0 % (0-5); Neutrophil # 4.22 X10^3/uL (2.7-7.7); Neutrophil % 63.7 % (47-70); Platelet Count 256 K/mm3 (150-450); RBC Distribution Width CV 11.7 % (11.6-14.6); RBC Distribution Width SD 40.1 fl (35.1-43.9); Red Blood Count 4.07 M/mm3 (4.2-5.4); White Blood Count 6.6 K/mm3 (4.4-11.0)
[2021-09-05 09:13] LABS: Thyroid Stim Hormone (TSH) 0.92 uIU/mL (0.358-3.74)
[2021-09-05 09:23] LABS: hCG Titer Quant., Serum < 1 mIU/mL (1-3)
== END 2021-09-05 23:59 | disposition home or self-care (01) ==
LOC: PAVLAB 08:05
PROVIDERS: Referring Provider Nurse Practitioner Women's Health; Visit Provider Nurse Practitioner Women's Health
DX: N91.2 Amenorrhea, unspecified (principal)
CPT/HCPCS: 36415; 84443; 84702; 85025

== ENCOUNTER → 2022-01-16 | Outpatient (CLI) | payer BC, SELFPAY ==
[2022-01-16 10:33] LABS: Absolute Lymphocyte Count 1.46 X10^3/uL (0.83-4.51); Absolute Neutrophil Count 6.7 X10^3/uL (2.0-7.7); Basophil# 0.02 X10^3/uL; Basophil% 0.2 % (0-1); Eosinophil# 0.04 X10^3/uL; Eosinophils% 0.5 % (0-5); Hematocrit 35.4 % (37-47); Hemoglobin 12.2 g/dL (12.0-15.0); Lymphocyte # 1.46 X10^3/ul (0.83-4.51); Lymphocyte % 16.8 % (19-41); Mean Corp Hgb Conc 34.5 g/dL (32-36); Mean Corpuscular Hgb 32.8 pg (27.0-32.0); Mean Corpuscular Volume 95.2 fL (81-99); Mean Platelet Vol. 9.9 fl (6.2-12.0); Monocyte# 0.45 X10^3/uL; Monocyte% 5.2 % (0-10); NRBC Flagged by Analyzer 0 % (0-5); Neutrophil # 6.66 X10^3/uL (2.7-7.7); Neutrophil % 76.8 % (47-70); Platelet Count 217 K/mm3 (150-450); RBC Distribution Width SD 41.6 fl (35.1-43.9); Red Blood Count 3.72 M/mm3 (4.2-5.4); White Blood Count 8.7 K/mm3 (4.4-11.0)
[2022-01-16 11:43] LABS: HIV - WCH Non-Reactive (Nonreactive); Hepatitis B Surface Antigen Non-Reactive (Nonreactive); Hepatitis C Antibody Non-Reactive (Nonreactive); Rubella IgG Reactive (Nonreactive); Syphilis Antibodies Non-reactive
[2022-01-16 15:39] LABS: Amphetamine Urine VISTA NEGATIVE (<1000 ng/mL); Barbiturate Urine VISTA NEGATIVE (< 200 ng/mL); Benzodiazepine Urine VISTA NEGATIVE (< 200 ng/mL); Cocaine Urine VISTA NEGATIVE (< 300 ng/mL); Ecstacy Urine VISTA NEGATIVE (< 500 ng/mL); Methadone Urine VISTA NEGATIVE (< 300 ng/mL); PCP Urine VISTA NEGATIVE (< 25 ng/mL); THC Urine VISTA NEGATIVE (< 50 ng/mL); Vista UDS pH Range 5
[2022-01-18 22:06] LABS: Chlamydia By Nucleic Acid AMP Negative (Negative)
[2022-01-19 12:45] LABS: Gonococcus By Nucleic Acid AMP Negative (Negative)
== END | disposition home or self-care (01) ==
LOC: PAVLAB 10:12
PROVIDERS: Referring Provider Obstetrics & Gynecology; Visit Provider Obstetrics & Gynecology
DX: Z34.90 Encounter for supervision of normal pregnancy, unspecified, unspecified trimester (principal)
CPT/HCPCS: 36415; 80307; 85025; 86703; 86762; 86780; 86803; 86850; 86900; 86901; 87086; 87088; 87340; 87491; 87591

== ENCOUNTER → 2022-06-13 | Outpatient (CLI) | payer BC, MEDICAID, SELFPAY ==
[2022-06-13 08:27] LABS: Absolute Lymphocyte Count 1.91 X10^3/uL (0.83-4.51); Absolute Neutrophil Count 6.6 X10^3/uL (2.0-7.7); Basophil# 0.02 X10^3/uL; Basophil% 0.2 % (0-1); Eosinophil# 0.14 X10^3/uL; Eosinophils% 1.5 % (0-5); Hematocrit 29.4 % (37-47); Hemoglobin 9.9 g/dL (12.0-15.0); Lymphocyte # 1.91 X10^3/ul (0.83-4.51); Lymphocyte % 20.7 % (19-41); Mean Corp Hgb Conc 33.7 g/dL (32-36); Mean Corpuscular Hgb 32.7 pg (27.0-32.0); Mean Platelet Vol. 10.3 fl (6.2-12.0); Monocyte# 0.49 X10^3/uL; Monocyte% 5.3 % (0-10); NRBC Flagged by Analyzer 0 % (0-5); Neutrophil % 71.4 % (47-70); Platelet Count 180 K/mm3 (150-450); RBC Distribution Width CV 12.9 % (11.6-14.6); RBC Distribution Width SD 45.1 fl (35.1-43.9); Red Blood Count 3.03 M/mm3 (4.2-5.4); White Blood Count 9.2 K/mm3 (4.4-11.0)
[2022-06-13 08:44] LABS: Glucose Challenge Gest 1H 50g 144 mg/dL (70-140)
[2022-06-13 09:16] LABS: HIV - WCH Non-Reactive (Nonreactive); Syphilis Antibodies Non-reactive
== END | disposition home or self-care (01) ==
LOC: PAVLAB 07:59
PROVIDERS: Referring Provider Obstetrics & Gynecology; Visit Provider Obstetrics & Gynecology
DX: Z13.1 Encounter for screening for diabetes mellitus (principal); Z34.92 Encounter for supervision of normal pregnancy, unspecified, second trimester
CPT/HCPCS: 36415; 82950; 85025; 86703; 86780

== ENCOUNTER → 2022-06-20 | Outpatient (CLI) | payer BC, MEDICAID, SELFPAY ==
[2022-06-20 07:47] LABS: Glucose GTT-Gestation. Fasting 90 mg/dL (<105)
[2022-06-20 08:40] LABS: Glucose GTT-Gestational 1 Hr 181 mg/dL (<190)
[2022-06-20 10:15] LABS: Glucose GTT-Gestational 2 Hr 126 mg/dL (<165)
[2022-06-20 11:11] LABS: Glucose GTT-Gestational 3 Hr 127 L (<145)
== END | disposition home or self-care (01) ==
LOC: LAB 06:50
PROVIDERS: Referring Provider Nurse Practitioner Women's Health; Visit Provider Nurse Practitioner Women's Health
DX: Z13.1 Encounter for screening for diabetes mellitus (principal)
CPT/HCPCS: 36415; 82951; 82952

== ENCOUNTER → 2022-07-14 | Outpatient (CLI) | payer BC, MEDICAID, SELFPAY ==
--- NOTE | 2022-07-14 12:25 | US_ITS ---
STUDY: SECOND AND THIRD TRIMESTER OBSTETRICAL ULTRASOUND REASON FOR EXAM: Female, 32 years old growth LMP: 11/10/2021. TECHNIQUE: Transabdominal TECHNICAL QUALITY: Adequate. PRIOR ULTRASOUND: None. FINDINGS: There is a single intrauterine fetus. The fetus is in a cephalic presentation. There is demonstrated cardiac activity with a heart rate of 135 bpm. There is a normal amniotic fluid volume. The largest amniotic fluid pocket measures 6.5 cm. The amniotic fluid index (HANS) is 60 cm. The placenta is posterior in location and is not low lying. There are Grade 1 placental changes. The cervix measures 3.1 cm in length. The adnexal regions are not visualized. BIOMETRY: BPD: 8.9 cm: 36 weeks, 0 days HC: 32.15 cm: 36 weeks, 2 days AC: 33.48 cm: 37 weeks, 3 days FL: 6.32 cm: 32 weeks, 5 days CI: 82% FL/BPD: 71% FL/HC: FL/AC: 19% HC/AC: 0.96 age by current US: 35 weeks, 2 days. JOSSELIN by current US: 08/16/2022. Estimated weight: 2835 grams, +/- 424 grams, 73 %. Age by LMP: 35 weeks, 1 days. JOSSELIN by LMP: 08/17/2022. US/OB Limited With Biometrics IMPRESSION: Single live intrauterine gestation with a mean gestational age of 35 weeks and 2 days. Electronically Signed: Tima Bill MD at 14:35 EST ,
== END | disposition home or self-care (01) ==
LOC: OPUS 12:23
PROVIDERS: Visit Provider Obstetrics & Gynecology
DX: O98.519 Other viral diseases complicating pregnancy, unspecified trimester (principal); Z3A.35 35 weeks gestation of pregnancy; U07.1 COVID-19
CPT/HCPCS: 76816

== ENCOUNTER → 2022-07-18 | Outpatient (CLI) | payer BC, MEDICAID, SELFPAY ==
[2022-07-18 08:22] LABS: Absolute Lymphocyte Count 1.51 X10^3/uL (0.83-4.51); Basophil# 0.01 X10^3/uL; Basophil% 0.1 % (0-1); Eosinophil# 0.07 X10^3/uL; Eosinophils% 0.9 % (0-5); Hematocrit 34.8 % (37-47); Hemoglobin 11.4 g/dL (12.0-15.0); Lymphocyte # 1.51 X10^3/ul (0.83-4.51); Lymphocyte % 18.8 % (19-41); Mean Corp Hgb Conc 32.8 g/dL (32-36); Mean Corpuscular Hgb 32.2 pg (27.0-32.0); Mean Corpuscular Volume 98.3 fL (81-99); Mean Platelet Vol. 10.7 fl (6.2-12.0); Monocyte# 0.34 X10^3/uL; Monocyte% 4.2 % (0-10); NRBC Flagged by Analyzer 0 % (0-5); Neutrophil # 6.04 X10^3/uL (2.7-7.7); Neutrophil % 75.4 % (47-70); Platelet Count 186 K/mm3 (150-450); RBC Distribution Width CV 14.5 % (11.6-14.6); RBC Distribution Width SD 52.1 fl (35.1-43.9); Red Blood Count 3.54 M/mm3 (4.2-5.4)
== END | disposition home or self-care (01) ==
LOC: PAVLAB 08:09
PROVIDERS: Referring Provider Obstetrics & Gynecology; Visit Provider Obstetrics & Gynecology
DX: D64.9 Anemia, unspecified (principal)
CPT/HCPCS: 36415; 85025

== ENCOUNTER → 2022-07-28 | Outpatient (CLI) | payer BC, MEDICAID, SELFPAY | END | disposition home or self-care (01) | LOC: LABSPEC 11:29 | PROVIDERS: Referring Provider Obstetrics & Gynecology; Visit Provider Obstetrics & Gynecology | DX: O09.90 Supervision of high risk pregnancy, unspecified, unspecified trimester (principal); Z3A.00 Weeks of gestation of pregnancy not specified | CPT/HCPCS: 87081 ==

== ENCOUNTER 2022-08-10 22:24 | Inpatient (IN) | payer BC, MEDICAID, SELFPAY ==
[2022-08-10] VITALS (24 sets, daily range): BP systolic 98–128; BP diastolic 56–78; PULSE 74–112; TEMP 36.1–36.6; O2SAT 93–100; BMI 31.8
[2022-08-10] MEDS: LACTATED RINGERS 500 ML 999 ML IV (22:32)
[2022-08-10] MEDS: Lactated Ringers 1,000 ML 50 ML IV (22:32)
[2022-08-10 22:41] LABS: Absolute Lymphocyte Count 2.55 X10^3/uL (0.83-4.51); Absolute Neutrophil Count 8.4 X10^3/uL (2.0-7.7); Basophil# 0.03 X10^3/uL; Basophil% 0.2 % (0-1); Eosinophil# 0.06 X10^3/uL; Eosinophils% 0.5 % (0-5); Hematocrit 35.8 % (37-47); Hemoglobin 11.9 g/dL (12.0-15.0); Lymphocyte # 2.55 X10^3/ul (0.83-4.51); Lymphocyte % 21.1 % (19-41); Mean Corp Hgb Conc 33.2 g/dL (32-36); Mean Corpuscular Hgb 32.2 pg (27.0-32.0); Monocyte% 8.3 % (0-10); NRBC Flagged by Analyzer 0 % (0-5); Neutrophil # 8.35 X10^3/uL (2.7-7.7); Neutrophil % 69.2 % (47-70); Platelet Count 174 K/mm3 (150-450); RBC Distribution Width CV 13.7 % (11.6-14.6); RBC Distribution Width SD 49.1 fl (35.1-43.9); Red Blood Count 3.69 M/mm3 (4.2-5.4); White Blood Count 12.1 K/mm3 (4.4-11.0)
[2022-08-10] MEDS: fentaNYL 100 MCG/2 ML Ampul IV (23:01)
[2022-08-10] MEDS: fentaNYL-bupivacaine (epidural) 100 ML BAG EPIDURAL (23:21)
[2022-08-11] VITALS (36 sets, daily range): BP systolic 88–124; BP diastolic 49–76; PULSE 73–114; RESP 14–16; TEMP 36.1–37.1; O2SAT 96–100
[2022-08-11] MEDS: LACTATED RINGERS 500 ML 999 ML IV (00:02)
[2022-08-11] MEDS: Oxytocin 10 UNITS/ML Vial IM (01:18)
--- NOTE | 2022-08-11 01:26 | HP.PCM.OB_ITS ---
HPI - General General Date of Admission: 08/10/22 HPI Narrative KARLEE ROTHMAN, is a 32 F who presents IAL regular ctx made change to 5-6 Maternal Data Information JOSSELIN Calculator Estimated Delivery Date Method Current WG Current Estimate 08/17/22 LMP (Certain) 39w 1d PFSH PFS Medical History Abnormal glucose affecting Anemia Bipolar 2 disorder Depression Hx of one miscarriage Hx of depression, currently Home Medications prenat.vits,efren,onk-ruvv-dxjvu 1 tab PO DAILY Check with primary doctor 07/21/19 [History Last Taken 02/26/20 21:00] sertraline 50 mg tablet 75 mg PO DAILY #60 tabs 03/27/22 [Rx Last Taken Unknown] ferrous sulfate 325 mg (65 mg iron) tablet (iron) 325 mg PO DAILY 08/10/22 [History Last Taken Unknown] Allergy/AdvReac Type Severity Reaction Status Date / Time No Known Allergies Allergy Verified 08/10/22 18:14 Family History Grandfather Cancer lung Colon cancer Father Myocardial infarction Aunt Cancer lung Social History adopted: No household members: spouse and children housing: house number of children: 1 current occupational status: employed 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 [employer] current occupational exposures/hazards: No pets and animals: Yes (not managing litterbox) pets and animals: cat(s) and dog(s) history of recent travel: Yes ([place], [place] 01/16/22, [place] in January) out of state: Yes out of country: No sexually active: Yes Smoking Status: Never smoker alcohol intake: former details: social substance use type: does not use well-balanced diet: daily or most days caffeine: Yes (1 cup per day) Type: carbonated beverages and tea during the past year weight has: remained stable what type of physical activity do you participate in: walking and yoga frequency: 3-4 times per week duration: 15-30 minutes/day shahram/voodoo: Rastafari seatbelt use: always do you feel safe at home: Yes additional social history: Luke- Works at [employer]/fulltime parent History 3 Elective abortions Hx Para 1 Spontaneous abortions 1 Hx # Term Pregnancies 1 Ectopic pregnancies Hx # Pregnancies Multiple births # of living children 1 Past Pregnancies Del. Date Name GA/Weeks Outcome Route Bth Weight Gen Labor Lgth Anesthesia Del Locatn Provider FOB 02/28/20 Tashia 40 live - full term vacuum Female [facility] Chani Delivery Date: 02/28/20 Last Updated by: Samantha Dumas SROM 40 wks VAVD meternal exhaustion Visit Details Expected Delivery Route/Plan Labor Preferences- CB/BF classes: did them last labor support person: Dung labor intervention preferences: labor ball, shower, pitocin as needed only pain management options preferred: epidural cut cord/dad catch: no : yes PP control planned: condoms then salpingectomy/vasectomy discussed possible routes of delivery and associated risks: [] special requests: see above, music, fake candles, nurse Cherrie Curtis Plans Covid status: discssed Flu vaccine: given Tdap vaccine: given Rhogam: na LARC form signed: declined movement and labor precautions reviewed. Problem list reviewed and updated with the most current plan of care details and appropriate orders placed. Relevant counseling for the gestational age provided. Continue routine care and follow up unless otherwise noted in visit notes/problem list details OB Flowsheet Initial Weight: Not Recorded Date -?-?-?-?-?-?-?-?-?-?-?-?- EGA Weight BP Urine Prot -?-?-?-?-?-?-?-?-?-?-?-?- Glucose FHR FuHt Pres Dilation -?-?-?-?-?-?-?-?-?-?-?-?- Effaced St Visit Note 01/16/22 -?-?-?-?-?-?-?-?-?-?-?-?- 9w 4d 150 lb 110/80 -?-?-?-?-?-?-?-?-?-?-?-?- 160 -?-?-?-?-?-?-?-?-?-?-?-?- SM- CRL cons wit h LMP 02/20/22 -?-?-?-?-?-?-?-?-?-?-?-?- 14w 4d 153 lb 106/72 -?-?-?-?-?-?-?-?-?--?-?-?- 150 -?-?-?-?-?-?-?-?-?-?-?-?- SM- no vb crampi ng discussed headache management 03/20/22 -?-?-?-?-?-?-?-?-?-?-?-?- 18w 4d 160 lb 2 oz 105/70 Nega tive -?-?-?-?-?-?-?-?-?-?-?-?- Negative 166 -?-?-?-?-?-?-?-?-?-?-?-?- JV- normal anato my scan. labor prefs reviewed 05/11/22 -?-?-?-?-?-?-?-?-?-?-?-?- 26w 0d 168 lb 110/80 -?-?-?-?-?-?-?-?-?-?-?-?- 145 -?-?-?-?-?-?-?-?-?-?-?-?- SM- no vb lof go od fm no regular ctx 06/05/22 -?-?-?-?-?-?-?-?-?-?-?-?- 29w 4d 173 lb 4 oz 98/67 Nega tive -?-?-?-?-?-?-?-?-?-?-?-?- Negative 140 30 -?-?-?-?-?-?-?-?-?-?--?-?- SM- no vb lof go od fm no regular ctx 06/23/22 -?-?-?-?-?-?-?-?-?-?-?-?- 32w 1d 176 lb 6 oz 112/70 Nega tive -?-?-?-?-?-?-?-?-?-?-?-?- Negative 135 32 -?-?-?-?-?-?-?-?-?-?-?-?- SM- no vb lof go od fm no reguar ctx larc signed 07/04/22 -?-?-?-?-?-?-?-?-?-?-?-?- 33w 5d 174 lb 8 oz 109/69 Nega tive -?-?-?-?-?-?-?-?-?-?-?-?- Negative 157 33 -?-?-?-?-?-?-?-?-?-?-?-?- JV- having some zafar diego contractions. no other complaints. She is concerned that she had covid in April. 07/18/22 -?-?-?-?-?-?-?-?-?-?-?-?- 35w 5d 178 lb 8 oz 97/70 Nega tive -?-?-?-?-?-?-?-?-?-?-?-?- Negative 144 35 -?-?-?-?-?-?-?-?-?-?-?-?- JV- ultrasound suman orta. no signs of labor. plan for GBS next visit. 07/28/22 -?-?-?-?-?-?-?-?-?-?-?-?- 37w 1d 182 lb 8 oz 121/75 Nega tive -?-?-?-?-?-?-?-?-?-?-?-?- Negative 145 36 Cephalic 1 -?-?-?-?-?-?-?-?-?-?-?-?- 0 JV- gbs collected, has sprinkle this weekend. no complaint. 08/03/22 -?-?-?-?-?-?-?-?-?-?-?-?- 38w 0d 181 lb 108/71 Negative -?-?-?-?-?-?-?-?-?-?-?-?- Negative 135 37 Cephalic 3 -?-?-?-?-?-?-?-?-?-?-?-?- 60 -1 SM- no vb lof good fm nro egualr ctx 08/10/22 -?-?-?-?-?-?-?-?-?-?-?-?- 39w 0d 180 lb 6 oz 125/79 Nega tive -?-?-?-?-?-?-?-?-?-?--?-?- Negative 147 39 Cephalic 4 .5 -?-?-?-?-?-?-?-?-?-?-?-?- 70 -1 JV- no lof , vaginal bleeding, or dec fm. pt declines membrane sweep or IOL. labor precautions discussed. 08/10/22 -?-?-?-?-?-?-?-?-?-?-?-?- 39w 0d 118/78 122/69 122/75 124/58 124/74 128/72 111/70 109/58 101/65 98/56 100/59 88/54 107/49 95/53 102/58 110/56 103/65 -?-?-?-?-?-?-?-?-?-?-?-?- -?-?-?-?-?-?-?-?-?-?-?-?- NST FHR Rate Baby A Baseline: 140 Variability:: Moderate Accelerations:: 15 x 15 Decelerations:: None NST Reactive:: Yes FHR Category:: Category I Uterine Activity:: q3-5 ROS Constitutional Constitutional: Reports systems reviewed and no addt'l complaints, except as documented ENT HEENT: Reports systems reviewed and no addt'l complaints, except as documented Cardiovascular Cardiovascular: Reports systems reviewed and no addt'l complaints, except as documented Respiratory/Chest Respiratory/Chest: Reports systems reviewed and no addt'l complaints, except as documented Gastrointestinal Gastrointestinal: Reports systems reviewed and no addt'l complaints, except as documented and nausea; Denies abdominal pain Genitourinary Genitourinary: Reports systems reviewed and no addt'l complaints, except as documented, contractions Details: present and frequency (regular ) and movement Details: present Musculoskeletal Musculoskeletal: Reports systems reviewed and no addt'l complaints, except as documented Integumentary Integumentary: Reports as per HPI Neurologic Neurologic: Reports systems reviewed and no addt'l complaints, except as documented Endocrine Endocrinology: Reports systems reviewed and no addt'l complaints, except as documented Vital Signs Vital Signs Vital Signs: 08/10/22 18:02 08/10/22 18:02 08/10/22 18:06 Temperature Temperature Source Temporal Pulse Rate 112 H Blood Pressure 118/74 BP Systolic 118 BP Diastolic 74 Pulse Ox 08/10/22 18:06 08/10/22 20:22 08/10/22 20:22 Temperature 97.8 F Temperature Source Pulse Rate 89 Blood Pressure BP Systolic BP Diastolic Pulse Ox 97 08/10/22 20:23 08/10/22 20:23 08/10/22 23:07 Temperature Temperature Source Pulse Rate 86 Blood Pressure 118/78 122/69 H BP Systolic 118 122 BP Diastolic 78 69 Pulse Ox 08/10/22 23:07 08/10/22 23:11 08/10/22 23:11 Temperature Temperature Source Pulse Rate 95 101 H Blood Pressure 122/75 H BP Systolic 122 BP Diastolic 75 Pulse Ox 08/10/22 23:15 08/10/22 23:15 08/10/22 23:18 Temperature Temperature Source Pulse Rate 94 83 Blood Pressure 124/58 H BP Systolic 124 BP Diastolic 58 Pulse Ox 08/10/22 23:18 08/10/22 23:22 08/10/22 23:22 Temperature Temperature Source Pulse Rate 81 Blood Pressure 124/74 H BP Systolic 124 BP Diastolic 74 Pulse Ox 97 08/10/22 23:23 08/10/22 23:23 08/10/22 23:25 Temperature Temperature Source Pulse Rate 76 Blood Pressure 128/72 H BP Systolic 128 BP Diastolic 72 Pulse Ox 97 08/10/22 23:25 08/10/22 23:28 08/10/22 23:28 Temperature Temperature Source Pulse Rate 93 84 Blood Pressure BP Systolic BP Diastolic Pulse Ox 95 08/10/22 23:17 08/10/22 23:30 08/10/22 23:30 Temperature Temperature Source Temporal Pulse Rate 79 Blood Pressure 111/70 BP Systolic 111 BP Diastolic 70 Pulse Ox 08/10/22 23:17 08/10/22 23:34 08/10/22 23:34 Temperature 96.9 F L Temperature Source Pulse Rate 78 Blood Pressure BP Systolic BP Diastolic Pulse Ox 93 08/10/22 23:38 08/10/22 23:38 08/10/22 23:40 Temperature Temperature Source Pulse Rate 77 Blood Pressure 109/58 L BP Systolic 109 BP Diastolic 58 Pulse Ox 100 08/10/22 23:40 08/10/22 23:43 08/10/22 23:43 Temperature Temperature Source Pulse Rate 74 75 Blood Pressure BP Systolic BP Diastolic Pulse Ox 97 08/10/22 23:46 08/10/22 23:46 08/10/22 23:48 Temperature Temperature Source Pulse Rate 75 82 Blood Pressure 101/65 BP Systolic 101 BP Diastolic 65 Pulse Ox 08/10/22 23:48 08/10/22 23:50 08/10/22 23:50 Temperature Temperature Source Pulse Rate 83 Blood Pressure 98/56 L BP Systolic 98 BP Diastolic 56 Pulse Ox 100 08/10/22 23:53 08/10/22 23:53 08/10/22 23:55 Temperature Temperature Source Pulse Rate 81 Blood Pressure 100/59 L BP Systolic 100 BP Diastolic 59 Pulse Ox 100 08/10/22 23:55 08/10/22 23:58 08/10/22 23:58 Temperature Temperature Source Pulse Rate 78 99 Blood Pressure BP Systolic BP Diastolic Pulse Ox 100 08/11/22 00:02 08/11/22 00:02 08/11/22 00:03 Temperature Temperature Source Pulse Rate 88 84 Blood Pressure 88/54 L BP Systolic 88 BP Diastolic 54 Pulse Ox 08/11/22 00:03 08/11/22 00:07 08/11/22 00:07 Temperature Temperature Source Pulse Rate 92 Blood Pressure 107/49 L BP Systolic 107 BP Diastolic 49 Pulse Ox 100 08/11/22 00:08 08/11/22 00:08 08/11/22 00:10 Temperature Temperature Source Pulse Rate 97 Blood Pressure 95/53 L BP Systolic 95 BP Diastolic 53 Pulse Ox 99 08/11/22 00:10 08/11/22 00:13 08/11/22 00:13 Temperature Temperature Source Pulse Rate 88 90 Blood Pressure BP Systolic BP Diastolic Pulse Ox 99 08/11/22 00:14 08/11/22 00:14 08/11/22 00:18 Temperature Temperature Source Pulse Rate 88 80 Blood Pressure 102/58 L BP Systolic 102 BP Diastolic 58 Pulse Ox 08/11/22 00:18 08/11/22 00:23 08/11/22 00:23 Temperature Temperature Source Pulse Rate 102 H Blood Pressure BP Systolic BP Diastolic Pulse Ox 99 100 08/11/22 00:28 08/11/22 00:28 08/11/22 00:33 Temperature Temperature Source Pulse Rate 106 H 85 Blood Pressure BP Systolic BP Diastolic Pulse Ox 100 08/11/22 00:33 08/11/22 00:38 08/11/22 00:38 Temperature Temperature Source Pulse Rate 110 H Blood Pressure BP Systolic BP Diastolic Pulse Ox 98 100 08/11/22 00:40 08/11/22 00:40 08/11/22 00:43 Temperature Temperature Source Pulse Rate 89 82 Blood Pressure 110/56 L BP Systolic 110 BP Diastolic 56 Pulse Ox 08/11/22 00:43 08/11/22 00:45 08/11/22 00:45 Temperature Temperature Source Pulse Rate 81 Blood Pressure 103/65 BP Systolic 103 BP Diastolic 65 Pulse Ox 99 08/11/22 00:48 08/11/22 00:48 08/11/22 00:54 Temperature Temperature Source Pulse Rate 100 75 Blood Pressure BP Systolic BP Diastolic Pulse Ox 99 08/11/22 00:54 08/11/22 00:59 08/11/22 00:59 Temperature Temperature Source Pulse Rate 108 H Blood Pressure BP Systolic BP Diastolic Pulse Ox 96 100 08/11/22 01:04 08/11/22 01:04 Temperature Temperature Source Pulse Rate 109 H Blood Pressure BP Systolic BP Diastolic Pulse Ox 100 Weight Weight: 180 lb Body Mass Index (BMI) 31.8 Physical Exam Const alert, oriented x3 and healthy appearing Constitutional Narrative: uncomfortable with contractions HEENT normocephalic and moist oral mucous membranes Head and Scalp: atraumatic Neck full ROM, no lymphadenopathy, supple and thyroid normal General: trachea midline Thyroid: thyroid normal Lymph Lymphatic: no lymphadenopathy noted Chest inspection of chest normal Resp normal respiratory effort Cardio regular rate GI normal to inspection, nondistended, normoactive bowel sounds, soft to palpation and non-tender Inspection: gravid external exam normal Bimanual Exam - Vag & Uterus: uterus non-tender Manual OB Exam: estimated gestational size appropriate, presentation cepha lic, dilated, effaced and station Extremity normal to inspection General Extremity: Negative for edema Skin no rashes or lesions noted Neuro deep tendon reflexes 2+ bilaterally Motor Exam: strength 5/5 throughout and clonus absent Psych mental status grossly normal Labs Labs Labs: Blood Type AB POSITIVE Antibody Screen NEGATIVE Hct 35.8 % (37-47) L Hgb 11.9 g/dL (12.0-15.0) L Obstetrics US Syphilis Total Ab Non-reactive Rubella IgG Antibody Reactive (Nonreactive) Hep Bs Antigen Non-Reactive (Nonreactive) Chlamydia DNA (ROBIN) Negative (Negative) Neisseria gonorrhoeae DNA (ROBIN) Negative (Negative) HIV 1&2 Antibody Non-Reactive (Nonreactive) Glucose 1 Hr 50 gm 144 mg/dL (70-140) H Rhogam given: No Assessment & Plan (1) Anxiety: COMMENT: counseling, zoloft 75. (2) : QUALIFIERS: Weeks of gestation: 39 weeks Qualified Code(s): Z3A.39 - 39 weeks gestation of COMMENT: GBS neg, nl anatomy, NIPT & Carrier testing declined (3) Supervision of high risk , antepartum: COMMENT: PRR , JOSSELIN 08/17/22, girl Vani PC Tashia, Spouse Dung (4) Abnormal glucose affecting : COMMENT: 3 hr GTT nl (5) Anemia: COMMENT: add Fe at opposite time as (6) COVID-19 affecting , antepartum: COMMENT: Growth US ordered, nl growth us EFW 2835+/- 424gms 73% (7) Active labor at term: PLAN: Plan Patient presents IAL, plan expectant management for , pitocin/AROM PRN if needed. Pain management: plans epidural. GBS neg. Management of any complications: none I have reviewed the [facility] and made any clinically relevant updates.
--- NOTE | 2022-08-11 01:29 | EX.PCM.OBRPT ---
Assessment & Plan (1) Anxiety: COMMENT: counseling, zoloft 75. (2) : QUALIFIERS: Weeks of gestation: 39 weeks Qualified Code(s): Z3A.39 - 39 weeks gestation of COMMENT: GBS neg, nl anatomy, NIPT & Carrier testing declined (3) Supervision of high risk , antepartum: COMMENT: PRR , JOSSELIN 08/17/22, girl [facility], Spouse Dung (4) Abnormal glucose affecting : COMMENT: 3 hr GTT nl (5) Anemia: COMMENT: add Fe at opposite time as (6) COVID-19 affecting , antepartum: COMMENT: Growth US ordered, nl growth us EFW 2835+/- 424gms 73% (7) Active labor at term: (8) Vaginal delivery: COMMENT: SM IAL girl Vani 39 Maternal Data Information JOSSELIN Calculator Estimated Delivery Date Method Current WG Current Estimate 08/17/22 LMP (Certain) 39w 1d Vaginal Delivery Operative Information Date of Procedure: 08/11/22 Pre-Operative Diagnosis: IAL Post-Operative Diagnosis: same Surgery / Procedure Performed: Spontaneous Vaginal Delivery Type of Anesthesia: Epidural Special Medications: none Estimated Blood Loss: 100 Fluids Replaced: crystalloid Findings Description of Procedure: Patient began pushing and delivered the head in the SOFIE presentation. The head was delivered atraumatically . The anterior and posterior shoulders delivered without complication followed by the rest of the and the infant was placed on the maternal abdomen. Delayed cord clamping was employed for approximately 60 seconds. Cord was clamped and cut and gentle traction was applied to the cord and the placenta delivered spontaneously immediately following it was noted to be intact with three-vessel cord. The perineum and vagina were inspected and noted to have no laceration. EBL was 100 cc. Patient and infant tolerated delivery well. Presentation: SOFIE Amniotic Membrane Rupture Type: Artificial Amniotic Fluid Description: Lightly stained meconium Placental Delivery Description: Spontaneous Placenta Disposition: [facility] Cord Vessel Description: 3 Vessels Cord Entanglement: None Delayed Cord Clamping: Yes Post Vaginal Delivery Medications Given After Delivery: IV Pitocin Episiotomy Description: None Laceration: None Complication Complications: None Procedures Urinary/Genital [id number]: [id number] Vaginal Delivery [facility]
--- NOTE | 2022-08-11 01:31 | DCINST_ITS ---
Discharge Instructions Diet Discharge Diet: No restrictions Activity Discharge Activity: Return to Normal Activity, May Drive, May Shower and May Take a Tub Bath (in 4 weeks) May resume sexual activity in: 6-8 weeks (after seen by OB provider) Weight Bearing Status: Full weight bearing Lifting Restrictions: none Dressing / Incision Call your doctor if you observe: Fever of 101 or Higher, Inability to urinate, Using more than 1 pad per hour (for more than 2 hours in a row or more), Shortness of breath, Dizziness, Chest pain and - (headache not controlled with tylenol, change in vision) Follow Up Care When: in 6 weeks for visit, call the office to make the appointment. If you had elevated blood pressures call the office to be seen within 1 week. Test Results: Test results from this visit will be discussed in further detail at your follow- up appointment, if applicable. Discharge Plan Admission Admit Date/Time: 08/10/22 22:24 Attending Provider: Brea Wilde Primary Care Provider: Care Physician,Aysha Primary Discharge Orders/Prescriptions Prescriptions: No Action prenat.vits,efren,uob-lxkh-ojyqd Tablet 1 tab PO DAILY ferrous sulfate [iron] 325 mg (65 mg iron) Tablet 325 mg PO DAILY sertraline 50 mg tablet 75 mg PO DAILY Qty: 60 4RF Referrals / Follow Up: Care Physician,No Primary [Primary Care Provider] - Disposition Disposition (needs filled in before D/C Order can be placed): Home, Self Care
[2022-08-11] MEDS: Naproxen 500 MG Tablet PO ×2 (07:53→19:14)
[2022-08-11] MEDS: Sertraline 50 MG Tablet 75 MG PO (09:47)
[2022-08-12 01:15] VITALS: BP 117/63; PULSE 76; RESP 17; TEMP 36.5
--- NOTE | 2022-08-12 09:10 | PCM.PN.OB ---
Subjective Subjective Patient doing well without complaints. Tolerating PO. Ambulating and voiding without difficulty. Feeding well. Denies chest pain, shortness of breath, calf pain/swelling, fevers, chills, lightheadedness. Objective Data Objective Data Vital Signs: Vital Signs Temp Pulse Resp BP Pulse Ox O2 Del Method 97.7 F L 76 17 117/63 97 Room Air 08/12/22 01:15 08/12/22 01:15 08/12/22 01:15 08/12/22 01:15 08/11/22 15:28 08/11/22 15:28 Oxygen Delivery Method Room Air Weight: 180 lb Body Mass Index (BMI) 31.8 Intake & Output: Intake and Output for Last 24 Hours 08/10/22 08/11/22 08/12/22 23:59 23:59 23:59 Intake Total 500.83 / 500.83 846.67 / 846.67 Output Total 1999 Balance 500.83 / 500.83 -1153.33 / -1153.33 Lab / Micro Data Result Diagrams: 08/10/22 22:32 ROS Constitutional Constitutional: Denies chills, fatigue, fever(s), poor appetite or weakness Eyes Eyes: Denies blurry vision, change in vision, seeing flashes or spots in vision ENT HEENT: Denies dizziness, headache(s), loss taste/smell or sore throat Cardiovascular Cardiovascular: Denies chest pain, dizziness, dyspnea, irregular heart rhythm, palpitations or rapid heart rate Respiratory/Chest Respiratory/Chest: Denies chest tightness, cough, dyspnea or breast pain Gastrointestinal Gastrointestinal: Denies abdominal pain, constipation or vomiting Genitourinary Genitourinary: Denies dysuria or flank pain Musculoskeletal Musculoskeletal: Denies difficulty walking, joint pain, limited range of motion or numbness Neurologic Neurologic: Denies abnormal movements, abnormal speech, dizziness, numbness, seizure-like activity or syncope Psychiatric Psychiatric: Denies anxiety, behavioral changes, change in appetite, confusion, depression or suicidal thoughts Physical Exam Const alert, oriented x3 and no apparent distress General Appearance: cooperative and comfortable Resp normal respiratory effort Cardio regular rate GI normal to inspection, nondistended, normoactive bowel sounds GI Narrative: uterus is firm below umbilicus Palpation: soft Back/Spine no CVA tenderness and thoraco-lumbar ROM normal Extremity normal to inspection, no clubbing, cyanosis or edema, no calf tenderness and no pedal edema Psych mental status grossly normal, thought process normal, cooperative, affect normal, speech normal, activity/motor behavior normal, denies homicidal ideation and denies suicidal ideation Assessment & Plan (1) Vaginal delivery: COMMENT: SHANNA IAL girl Vani 39 (2) Anxiety: COMMENT: counseling, zoloft 75. PLAN: Plan s/p PPD # 1 1. routine post delivery care 2. breast feeding- support given 3. rh positive 4. rubella immune 5. patient wants to be discharged to home today
[2022-08-12 09:15] VITALS: BP 110/66; PULSE 92; RESP 18; TEMP 36.8; O2SAT 96
[2022-08-12] MEDS: Sertraline 50 MG Tablet 75 MG PO (10:11)
--- NOTE | 2022-08-12 11:00 | CASEMGMT ---
Social Work Assessment Labor and Delivery Unit Patient Address:[address] [place] [id number] Phone number: [phone] Date of Referral: 08/11/22 Time of Referral:? 9:30am Referred By: Susanna Blackburn Date of Intervention: ??08/12/22 Time of Intervention:? 11am Reason for Referral:? mental health History obtained from: medical records, mother of baby, Maddie and FOB, Dung. Household composition: MOB reports she and FOB live in a house they own with their nly-iluj-wyw daughter, Tashia. Patient's parent/guardian status: MOB reports she, FOB and pzt-khck-ezl daughter live in a house they own. MOB reports they have been together for twelve years, for 10 years. FOB is a stay at home Dad, was actively involved with previous child and plans to continue to be actively involved with NB. No concerns regarding DV at this time. Medical History: OJ has had three with two leading to delivery, including current NB. MOB reports she started care around 8 weeks with Chani. MOB states they plan to use condoms for control and BASIL is considering vasectomy. NB was born 08/11/22 weighing 7lbs 7 oz, pgars 8/9 and named Vani. MOB plans to breast feed the baby. Educational Status:? 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 MOB reports she has three months off and then will be working from home. 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 Infant Supplies: MOB reports having all necessary items for NB. NB will be sleeping in parents? bedroom in a bassinet beside their bed. Childcare/Caregiver(s):? MOB will be home for three months to care for baby. BASIL is a stay at home parent and will continue to care for NB once MOB returns to work. MOB reports they have additional support from both of their parents, siblings and friends. Transportation:? MOB reports she and FOB have access to vehicles, no concerns voiced. ? Programs/Agencies Involved: ??MOB reports she currently receives insurance from [employer] [facility], but no other benefits received. MOB also reports having WIC for NB. MOB declined referrals to other agencies. Children Services/Legal Issues:? none reported? Behavioral Health Issues: ??Mental Health History: MOB reports previous diagnosis of bipolar and anxiety and has been engaged in individual counseling services with [facility] in [place] since 2019, seeing Debi Yvonne. OJ reports they next sessions is scheduled for August or September and plans to continue prescribed medication, Zoloft. FOB reports being diagnosed with anxiety and depression and is currently taking prescribed medications to treat. No psychiatric hospitalization for either parent reported. ???Substance Use History: none reported ?Drug Screens: no significant findings or concerns ?? Family/Social Stressors: MOB reports main stressor is getting sleep, however, MOB reports knowing her limits and having a good support team she can rely on. Support Systems: MOB reports she is supported by FOB, their parents, siblings and friends. Depression/Shaken Baby/Safe Sleeping: OJ reports struggling with PPD once she stopped breast feeding her first child and was able to seek treatment. SW educated MOB on PPD and provide MOB with information regarding PPD and anxiety. SW encouraged MOB to contact PCP or OB with concerns if they arise. SW also educated parents on the importance of not shaking a baby as it impacts growth. SW inquired about safe sleeping habits; MOB explained NB will not be in their bed as she has a bassinet beside their bed. SW reviewed safe sleep information with MOB as well. Educational handouts provided to MOB, MOB receptive. ASSESSMENT:? SW met with MOB, FOB and NB. MOB seated on hospital bed and agreeable to speak to aids social worker with FOB present. MOB was engaged well in conversation and receptive towards information provided. MOB has history of mental health diagnosis; however, MOB is continuing to take prescribed medication and is engaged in individual counseling services. FOB and MOB interacted with appropriately during assessment. No concerns at this time. PLAN:? ?No other services requested or indicated. Rubi Figueroa CLERK TO JUSTICE, DELLA
== END 2022-08-12 11:38 | disposition home or self-care (01) | DRG 805 ==
LOC: WPOUT 22:27 → WP 22:27
PROVIDERS: Admitting Provider Obstetrics & Gynecology; Visit Provider Obstetrics & Gynecology
DX: O77.0 Labor and delivery complicated by meconium in amniotic fluid (principal); Z37.0 Single live birth; U07.1 COVID-19; O98.513 Other viral diseases complicating pregnancy, third trimester; O99.344 Other mental disorders complicating childbirth; D64.9 Anemia, unspecified; F41.9 Anxiety disorder, unspecified; O99.02 Anemia complicating childbirth; Z3A.39 39 weeks gestation of pregnancy
CPT/HCPCS: 59050; 85025; 86850; 86900; 86901; 99221; J7120; G0378

== ENCOUNTER → 2022-09-19 | Outpatient (CLI) | payer BC, MEDICAID, SELFPAY ==
[2022-09-26 11:18] LABS: HPV APTIMA, High Risk Negative (Negative)
== END | disposition home or self-care (01) ==
PROVIDERS: Visit Provider Obstetrics & Gynecology
DX: Z01.419 Encounter for gynecological examination (general) (routine) without abnormal findings (principal)
CPT/HCPCS: 87624; 88175; G0145

== ENCOUNTER 2023-03-26 17:13 | Observation (INO) | payer BC, MEDICAID, SELFPAY ==
[2023-03-26] VITALS (9 sets, daily range): BP systolic 94–114; BP diastolic 61–70; PULSE 61–89; RESP 14–18; TEMP 36.3–36.8; O2SAT 97–100; BMI 28.8; BMI 29.2
--- NOTE | 2023-03-26 19:06 | CT_ITS ---
We are attempting to reach an attending provider to discuss findings. An addendum with communication details will be sent when the communication is complete. STUDY: CT ABDOMEN AND PELVIS WITH CONTRAST REASON FOR EXAM: Female, 33 years old. RLQ abd pain RADIATION DOSAGE (If Supplied By Facility): CTDIvol = ( 8.75 ) mGy, DLP = ( 733.66 ) mGycm TECHNIQUE: IV 100mL Isovue-370 was administered. Transaxial images were obtained from the dome of the diaphragm to the symphysis pubis in the portal venous phase. Multiplanar coronal and sagittal images were reformatted. Individualized Dose Optimization Techniques Were Used For This CT. COMPARISON: No relevant prior comparison study available FINDINGS: LOWER CHEST: Lung bases are clear. No cardiomegaly or pericardial effusion. LIVER: The liver is normal in size, shape, and attenuation. No focal mass. GALLBLADDER AND BILIARY TREE: The gallbladder is normally distended. No gallstones. No gallbladder wall thickening or edema. No pericholecystic fluid. No intra- or extrahepatic biliary ductal dilation. PANCREAS: No focal cystic or solid mass. SPLEEN: Normal size without focal cystic or solid mass. ADRENAL GLANDS: No nodules. KIDNEYS AND URETERS: Normal renal size and position. No hydronephrosis or nephrolithiasis. PERITONEUM: No ascites or free air. No other fluid collection. BOWEL: The stomach is unremarkable. Normal caliber small bowel. There is no obstruction. Abnormal appendix. The appendix is dilated to measure 1.4 cm with wall thickening and adjacent inflammation. The remainder of the colon is unremarkable. LYMPH NODES: No enlarged mesenteric or retroperitoneal lymph nodes. VESSELS: Aorta is non-dilated. URINARY BLADDER: Unremarkable. REPRODUCTIVE ORGANS: No pelvic masses. ABDOMINAL WALL: No discrete abdominal or pelvic wall hernia. BONES: No lytic or blastic abnormality. CT/Abdomen/Pelvis W IV Cont ONLY IMPRESSION: Acute appendicitis. No free air or fluid collection. Electronically Signed: Keith Mendoza MD at 19:50 EDT ,
--- NOTE | 2023-03-26 19:07 | ED.VIS.GI ---
HPI HPI - GI History of Present Illness Chief Complaint: Abd Pain Detail of Chief Complaint: Right lower quadrant abdominal pain Informant: patient Abdominal Pain/Flank Pain Onset: Today and Yesterday Context: Gradual Onset Timing: Continuous Quality: Aching Location: RLQ Current Severity: Mild Maximum Severity: Mild Worsened by: Nothing Relieved by: Nothing Nausea/Vomiting/Emesis GI Symptom: Positive for Nausea Onset: Today Severity: Mild Diarrhea/Melena/Hematochezia GI Symptom: Negative for Diarrhea, Melena or Hematochezia Associated Symptoms Associated Symptoms: Negative for Dysuria, Frequency, Hematuria or Urgency Narrative Narrative: 33-year-old female who is seen past medical history of depression on Zoloft. No prior abdominal surgeries. States last seen just was not feeling well. Encounter rates abdominal pain is now in the right lower quadrant. Mild nausea no vomiting. No fever. No dysuria. No recent menstrual cycle because she had a child several months ago and has been breast-feeding. Denies any abdominal trauma. Prior similar symptoms: No Recent Illness/Hospitalization: No PFSH PFSH Medical History Abnormal glucose affecting Anemia Bipolar 2 disorder Depression Hx of one miscarriage Hx of depression, currently Vaginal delivery Home Medications sertraline 50 mg tablet 75 mg (1.5 x 50 mg) PO DAILY #60 tabs 10/11/22 [Rx Last Taken Unknown] Allergy/AdvReac Type Severity Reaction Status Date / Time No Known Allergies Allergy Verified 03/26/23 17:20 Family History Grandfather Cancer lung Colon cancer Father Myocardial infarction Aunt Cancer lung Social History adopted: No household members: spouse and children housing: house number of children: 1 current occupational status: employed 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 current occupational exposures/hazards: No pets and animals: Yes (not managing litterbox) pets and animals: cat(s) and dog(s) history of recent travel: Yes ([place], [place] 01/16/22, [place] in January) out of state: Yes out of country: No sexually active: Yes Smoking Status: Never smoker alcohol intake: former details: social substance use type: does not use well-balanced diet: daily or most days caffeine: Yes (1 cup per day) Type: carbonated beverages and tea during the past year weight has: remained stable what type of physical activity do you participate in: walking and yoga frequency: 3-4 times per week duration: 15-30 minutes/day shahram/buddhist: Bahai seatbelt use: always do you feel safe at home: Yes additional social history: Luke- Works at [employer]/fulltime parent ROS ROS ED ROS Narrative Abdominal pain. Nausea. Review of Systems ROS Unobtainable: Denies due to encephalopathy Constitutional Constitutional ED: Denies chills or fever(s) ENT ENT ED: Denies ear pain Cardiovascular Cardiovascular: Denies chest pain Respiratory/Chest Respiratory/Chest: Denies cough Gastrointestinal Gastrointestinal: Reports nausea; Denies abdominal pain, constipation, diarrhea, melena or vomiting Genitourinary Genitourinary ED: Denies dysuria or hematuria Musculoskeletal Musculoskeletal: Denies arthralgias or back pain Integumentary Denies abscess or Abrasions Neurologic Neurologic: Denies headache(s) Psychiatric Psychiatric: Denies anxiety Endocrine Endocrinology: Denies polydipsia Hematologic/Lymphatic Hematologic/Lymphatic: Denies easy bleeding or easy bruising Allergic/Immunologic Allergic/Immunologic ED: Denies mouth swelling or tongue swelling EXAM Physical Exam Narrative Exam Narrative: 31-year-old female no acute distress. Vital signs stable afebrile. She does not look septic toxic. She is no distress. H EENT exam unremarkable. Moist extremities. Lungs clear. Heart regular rhythm no murmur rate about 90. Abdomen soft nondistended normal bowel sounds no peritoneal signs but she does have right lower quadrant tenderness. No right upper quadrant tenderness. No left-sided tenderness. No hernia no mass. No distention. Soft. Back nontender. Moving all 4 extremities. Awake and alert. Const Vital Signs: 03/26/23 17:16 Temperature 97.7 F L Temperature Source Temporal Pulse Rate 89 Respiratory Rate 18 Blood Pressure 94/70 Blood Pressure Mean 78 Pulse Ox 97 Oxygen Delivery Method Room Air Positive well nourished and well developed; Negative for cachectic, contractures or unkempt General Appearance ED: well developed and NAD; Negative for unkempt, cachectic, contractures or pallor Nutritional Appearance: Negative for cachectic HEENT Reports moist mucous membranes; Denies dry mucous membranes normocephalic and atraumatic; Negative for trauma or tenderness Mouth ED: No dry mucous membranes Mouth: No dry mucous membranes Eyes PERRL and EOMs intact bilaterally General Eye ED: Negative for pale conjunctiva, scleral icterus or other Neck no lymphadenopathy, supple and no JVD General: Negative for tenderness Carotids: Negative for other Lymph Lymphatic: Negative for other Resp normal respiratory effort and clear to auscultation bilaterally Effort and Inspection: Negative for respiratory distress Auscultation: Negative for rales, rhonchi or wheezes Cardio regular rate, regular rhythm, S1 normal heart sound, S2 normal heart sound and no murmurs Rate: Negative for bradycardia or tachycardic Rhythm: Negative for abnormal rhythm GI non-distended and no masses; Negative for non-tender Inspection: Negative for abdominal distention Auscultation: normoactive bowel sounds Palpation: soft and tender; Negative for guarding, rigid, hepatomegaly, splenomegaly, hernia, mass, pulsatile mass or rebound tenderness present Back/Spine no CVA tenderness General Back: Negative for CVA tenderness Cervical Spine: Negative for cervical spine tenderness Thoracic Spine / Upper Back: Negative for thoracic spinal tenderness Lumbar Spine / Lower Back: Negative for lumbar spinal tenderness Extremity full ROM General Extremety ED: Negative for edema or tenderness General Extremity: Negative for edema Neuro CN's II-XII intact bilaterally and moves all extremities Sensorium / Orientation: alert, oriented to person, oriented to place and oriented to time; Negative for orientation impaired, confused, lethargic or stuporous Motor Exam: strength 5/5 throughout Psych mental status grossly normal and thought process normal Appearance: Negative for unkempt Attitude: No agitated Mood & Affect: Negative for depressed, anxious or tearful Skin no wounds General Skin Exam: Negative for pallor Lesions: no lesions Rashes: no rashes Trauma: Negative for abrasion MDM MDM MDM Narrative Medical decision making narrative: 31-year-old female right lower quadrant abdominal pain. Rule out appendicitis versus stone versus other etiology. Could also be an ovarian cyst. No prior history. She was already in urgent care and reportedly had a negative urinalysis and test. CAT scan labs are pending. She did not want a thing for pain. Repeat exam unchanged. I did review the CAT scan myself awaiting the official radiologist interpretation but does look like acute appendicitis. I discussed that with the patient. I spoke with the general surgeon on-call which is Dr. Mike Melgar. He reviewed the CAT scan. Patient will be started on Zosyn. He will be in the seer and expect to be taken to the OR for acute appendectomy. History & Record Review Discussion w/independent historian: Patient Additional record(s) reviewed:: Prior inpatient record, Prior outpatient record, Prior ED visit and Prior labs Lab Data Attestation: I reviewed the patient's lab results. Lab results narrative: CBC shows white count of 14.0. H&H 13.1 and 39. Platelets 219. Chemistries show gap of 8. BUN and creatinine of 14 and 1. Glucose 237. Liver enzymes normal. Serum test negative. Labs: Laboratory Results - last 24 hr 03/26/23 03/26/23 19:19 19:33 WBC 14.0 H RBC 4.17 L Hgb 13.1 Hct 39.4 MCV 94.5 MCH 31.4 MCHC 33.2 RDW Std Deviation 41.9 RDW Coeff of Yehuda 12.1 Plt Count 219 MPV 10.1 Immature Gran % (Auto) 0.400 Neut % (Auto) 89.2 H Lymph % (Auto) 5.3 L [place] % (Auto) 4.9 Eos % (Auto) 0.0 Baso % (Auto) 0.2 Absolute Neuts (auto) 12.5 H Absolute Lymphs (auto) 0.74 L Nucleated RBC % 0 Sodium 139 Potassium 3.6 Chloride 106 Carbon Dioxide 25.0 Anion Gap 8 BUN 14 Creatinine 1.05 H Estim Creat Clear Calc 63.63 Est GFR (MDRD) Af Amer 78 Est GFR (MDRD) Non-Af 65 BUN/Creatinine Ratio 13.3 Glucose 237 H Calcium 8.6 Total Bilirubin 0.50 AST 7 L ALT 17 Alkaline Phosphatase 58 Total Protein 6.9 Albumin 3.8 Globulin 3.1 Albumin/Globulin Ratio 1.2 Serum , Qual NEGATIVE Urine Color Yellow Urine Clarity Sl. Cloudy Urine pH 5.0 Ur Specific Hessel 1.025 Urine Protein 30 H Urine Glucose (UA) 250 H Urine Ketones 15 H Urine Occult Blood Negative Urine Nitrite Negative Urine Bilirubin Negative Urine Urobilinogen Normal Ur Leukocyte Esterase Negative Radiography Diagnostic Testing: Clinical Impression(s) from Imaging Studies Abdomen/Pelvis CT 03/26/23 19:06 IMPRESSION: Acute appendicitis. No free air or fluid collection. Electronically Signed: Keith Mendoza MD at 19:50 EDT , CT abdomen pelvis with IV contrast shows acute appendicitis. No perforation. Rhythm Strip Rhythm Strip: Sinus Rhythm Rate: 85 Ectopy: None EKG Initial EKG: Attestation: I personally reviewed and interpreted this EKG as follows: Interpretation: Sinus Rhythm and No Acute Injury Pattern Comments: Preop EKG. Normal sinus rhythm. Rate 85. No acute signs of DC or ischemia. Prior EKG tracings: not available for review Prior: No Prior Discharge Plan Dx/Rx/DC Orders Clinical Impression: Abdominal pain, Acute appendicitis Disposition Disposition: Acute Care Hospital [facility]
[2023-03-26 19:26] LABS: Absolute Lymphocyte Count 0.74 X10^3/uL (0.83-4.51); Absolute Neutrophil Count 12.5 X10^3/uL (2.0-7.7); Basophil# 0.03 X10^3/uL; Basophil% 0.2 % (0-1); Hematocrit 39.4 % (37-47); Hemoglobin 13.1 g/dL (12.0-15.0); Lymphocyte # 0.74 X10^3/ul (0.83-4.51); Lymphocyte % 5.3 % (19-41); Mean Corp Hgb Conc 33.2 g/dL (32-36); Mean Corpuscular Hgb 31.4 pg (27.0-32.0); Mean Corpuscular Volume 94.5 fL (81-99); Mean Platelet Vol. 10.1 fl (6.2-12.0); Monocyte# 0.69 X10^3/uL; Monocyte% 4.9 % (0-10); NRBC Flagged by Analyzer 0 % (0-5); Neutrophil # 12.49 X10^3/uL (2.7-7.7); Neutrophil % 89.2 % (47-70); Platelet Count 219 K/mm3 (150-450); RBC Distribution Width CV 12.1 % (11.6-14.6); RBC Distribution Width SD 41.9 fl (35.1-43.9); Red Blood Count 4.17 M/mm3 (4.2-5.4)
[2023-03-26] MEDS: 0.9% Normal Saline (1000mL) 1,000 ML 1000 ML IV (19:36)
[2023-03-26 19:44] LABS: Internal QC Validated? YES +Cl - CLEAR BKGD; Pregnancy, Serum, hCG Quali. NEGATIVE Negative
[2023-03-26 19:48] LABS: ALB/GLOB Ratio 1.2 RATIO (0.9-2.4); AST(SGOT) 7 U/L (15-37); Alanine Aminotransfer ALT/SGPT 17 U/L (13-56); Albumin, Serum 3.8 g/dL (3.2-5.0); Alkaline Phosphatase 58 U/L (45-117); Anion Gap 8 (5-15); BUN 14 mg/dL (7-18); BUN/Creat Ratio 13.3 RATIO (10-20); Calcium,Total 8.6 mg/dL (8.5-10.1); Chloride 106 mmol/L (98-107); Creatinine, Serum 1.05 mg/dL (0.55-1.02); EST Glomerular Filtration Rate 65 mL/min (>60); Est Glom Filt Rate - Afr Amer 78 mL/min (>60); Estimated Creatinine Clearance 63.63 ml/min; Globulin 3.1 g/dL (2.2-4.2); Glucose 237 mg/dL (74-106); Potassium 3.6 mmol/L (3.5-5.1); Protein, Total 6.9 g/dL (6.4-8.2); Sodium Level 139 mmol/L (136-145)
[2023-03-26 19:49] LABS: Bacteria 0 SEEN /hpf (None Seen); Mucous, Urine 0 SEEN /hpf (<or=2+); Red Blood Cells-Urine 0 SEEN /hpf (0-5); White Blood Cells 0 SEEN /hpf (0-5)
[2023-03-26 19:52] LABS: Color, Urine Yellow (Yellow); Glucose, Dipstick 250 mg/dl (Normal); Ketone-Dipstick 15 mg/dl (Negative); Leukocyte Esterase-Dipstick Negative /ul (Negative); Nitrite-Dipstick Negative (Negative); Occult Blood-Urine Negative /ul (Negative); Protein-Dipstick 30 mg/dl (Negative); Specific Gravity, Urine 1.025 (1.002-1.030); Urine Bilirubin Dipstick Negative (Negative); Urine Clarity Sl. Cloudy (Clear); Urine Urobilinogen Normal (Normal)
--- NOTE | 2023-03-26 19:52 | EKG12_ITS ---
Test Reason : Blood Pressure : / mmHG Vent. Rate : 085 BPM Atrial Rate : 085 BPM P-R Int : 144 ms QRS Dur : 086 ms QT Int : 370 ms P-R-T Axes : 056 074 -75 degrees QTc Int : 440 ms Normal sinus rhythm Nonspecific ST and T wave abnormality Abnormal ECG Confirmed by JAYDEN BELL, CHAGO ([id number]), associate entertainment editor MOE CABRERA ([id number]) on 03/30/2023 2:29:24 PM Referred By: Confirmed By:CHAGO CARPENTER MD
[2023-03-26 20:04] LABS: Squamous Epithelial Cells - UA 10-25 SEEN /hpf (5-10)
--- NOTE | 2023-03-26 20:29 | HP.PCM.SX_ITS ---
HPI - General General Date of Admission: 03/26/23 HPI Narrative KARLEE ROTHMAN, is a 33 F who presents with abdominal pain. She says the pain started last night before bed. She says she woke up with some pain this morning early in the morning. She says the pain actually went away after taking a nap but she came in to be safe. She denies nausea or vomiting or fevers or chills. [facility], [facility] Medical History Abnormal glucose affecting Anemia Bipolar 2 disorder Depression Hx of one miscarriage Hx of depression, currently Vaginal delivery Home Medications sertraline 50 mg tablet 75 mg (1.5 x 50 mg) PO DAILY #60 tabs 10/11/22 [Rx Last Taken Unknown] Allergy/AdvReac Type Severity Reaction Status Date / Time No Known Allergies Allergy Verified 03/26/23 17:20 Family History Grandfather Cancer lung Colon cancer Father Myocardial infarction Aunt Cancer lung Social History adopted: No household members: spouse and children housing: house number of children: 1 current occupational status: employed 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 current occupational exposures/hazards: No pets and animals: Yes (not managing litterbox) pets and animals: cat(s) and dog(s) history of recent travel: Yes ([place], [place] 01/16/22, [place] in January) out of state: Yes out of country: No sexually active: Yes Smoking Status: Never smoker alcohol intake: former details: social substance use type: does not use well-balanced diet: daily or most days caffeine: Yes (1 cup per day) Type: carbonated beverages and tea during the past year weight has: remained stable what type of physical activity do you participate in: walking and yoga frequency: 3-4 times per week duration: 15-30 minutes/day shahram/sikh: Adventism seatbelt use: always do you feel safe at home: Yes additional social history: Luke- Works at [employer]/fulltime parent ROS Constitutional Constitutional: Denies anorexia, chills or fatigue Eyes Eyes: Denies blurry vision ENT HEENT: Denies abnormal hearing Cardiovascular Cardiovascular: Denies chest pain Respiratory/Chest Respiratory/Chest: Denies cough or dyspnea Gastrointestinal Gastrointestinal: Reports abdominal pain; Denies constipation, nausea or vomiting Genitourinary Genitourinary: Denies dysuria Musculoskeletal Musculoskeletal: Denies abnormal gait or back pain Integumentary Integumentary: Denies jaundice Neurologic Neurologic: Denies dizziness Psychiatric Psychiatric: Denies anxiety Endocrine Endocrinology: Denies heat intolerance Hematologic/Lymphatic Hematologic/Lymphatic: Denies easy bleeding Vital Signs Vital Signs Vital Signs: 03/26/23 17:16 Temperature 97.7 F L Temperature Source Temporal Pulse Rate 89 Respiratory Rate 18 Blood Pressure 94/70 Blood Pressure Mean 78 Pulse Ox 97 Oxygen Delivery Method Room Air Weight Weight: 163 lb Body Mass Index (BMI) 28.8 Physical Exam Const oriented x3 and no apparent distress Resp normal respiratory effort Cardio regular rate and regular rhythm GI soft to palpation Inspection: Negative for abdominal distention Palpation: tender RLQ Extremity normal to inspection Results Lab / Micro Data 03/26/23 19:19 03/26/23 19:19 Labs: Laboratory Results - last 24 hr 03/26/23 19:19: WBC 14.0 H, RBC 4.17 L, Hgb 13.1, Hct 39.4, MCV 94.5, MCH 31.4, MCHC 33.2, RDW Std Deviation 41.9, RDW Coeff of Yehuda 12.1, Plt Count 219, MPV 10.1, Immature Gran % (Auto) 0.400, Neut % (Auto) 89.2 H, Lymph % (Auto) 5.3 L, Towns % (Auto) 4.9, Eos % (Auto) 0.0, Baso % (Auto) 0.2, Absolute Neuts (auto) 12.5 H, Absolute Lymphs (auto) 0.74 L, Nucleated RBC % 0, Sodium 139, Potassium 3.6, Chloride 106, Carbon Dioxide 25.0, Anion Gap 8, BUN 14, Creatinine 1.05 H, Estim Creat Clear Calc 63.63, Est GFR (MDRD) Af Amer 78, Est GFR (MDRD) Non-Af 65, BUN/Creatinine Ratio 13.3, Glucose 237 H, Calcium 8.6, Total Bilirubin 0.50, AST 7 L, ALT 17, Alkaline Phosphatase 58, Total Protein 6.9, Albumin 3.8, Globulin 3.1, Albumin/Globulin Ratio 1.2, Serum , Qual NEGATIVE 03/26/23 19:33: Urine Color Yellow, Urine Clarity Sl. Cloudy, Urine pH 5.0, Ur Specific Hart 1.025, Urine Protein 30 H, Urine Glucose (UA) 250 H, Urine Ketones 15 H, Urine Occult Blood Negative, Urine Nitrite Negative, Urine Bilirubin Negative, Urine Urobilinogen Normal, Ur Leukocyte Esterase Negative, Urine RBC 0 SEEN, Urine WBC 0 SEEN, Ur Squamous Epith Cells 10-25 SEEN, Urine Bacteria 0 SEEN, Urine Mucus 0 SEEN Rhythm Strip Rhythm Strip: Sinus Rhythm Rate: 85 Ectopy: None Radiology Impression Abdomen/Pelvis CT 03/26/23 19:06 IMPRESSION: Acute appendicitis. No free air or fluid collection. Electronically Signed: Keith Mendoza MD at 19:50 EDT Reading Location ID and State: [address] [place] [address] Tel , Service support , ADDENDUM: 03/26/232005 IMPRESSION: Acute appendicitis. No free air or fluid collection. N.B. : The above Results were Read Back by Keith Mendoza MD to Zan Meeks MD, and understanding confirmed on 03/26/2023 19:59:21 (ET). Electronically Signed: Keith Mendoza MD at 19:50 EDT Reading Location ID and State: [address] [place] [address] Tel , Service support , ADDENDUM: 03/26/232007 IMPRESSION: Acute appendicitis. No free air or fluid collection. N.B. : The above Results were Read Back by Keith Mendoza MD to Zan Meeks MD, and understanding confirmed on 03/26/2023 20:01:22 (ET). Electronically Signed: Keith Mendoza MD at 19:50 EDT Reading Location ID and State: [facility] / [place] Tel , Service support , Assessment & Plan Assessment/Plan (1) Acute appendicitis: QUALIFIERS: Acute appendicitis type: unspecified acute appe ndicitis type Qualified Code(s): K35.80 - Unspecified acute appendicitis PLAN: Patient has an elevated white count and has a CT scan which shows acute appendicitis. I discussed laparoscopic appendectomy with the patient in detail. I discussed the risks including but not limited to bleeding, infection, injury to other organs such as the bowel, bladder, ureter. Patient understands the risks and is willing to proceed. Mike Beverly MD Pager: [facility] [address] [place] [address], [address] [place] [address] Office:
[2023-03-26] MEDS: Piperacil/Tazobactam 4.5 GM in 0.9% Normal Saline (100mL MB+) 100 ML IV (20:48)
--- NOTE | 2023-03-26 21:15 | ED.RN ---
report hemal Rueda in surgery.
--- NOTE | 2023-03-26 21:50 | APP_PTH ---
PATIENT: KARLEE ROTHMAN LOC: MS3 U#:[id number] AGE/SX: 33/F ROOM: MS311 RE03/26/[address]: Dr. Mike Beverly MD : 1990 BED: 1 DIS: 03/27/2023 SPEC #: [id number] RECD: 03/27/23 08:52 STATUS: MELYSSA SILVIA #: [id number] TRACIE: 03/26/23 21:[address]: Mike Beverly DEPT: SURGICAL PATHOLOGY RECD BY: Yanet Rogel ENTERED: 03/27/23 09:04 SP TYPE: APPENDIX OTHR DR: No Primary Care Phys Tissues: Appendix, NOS Procedures: Surgery Specimen Level III HEADER OPERATION: Laparoscopic appendectomy PRE-OP DIAGNOSIS: Acute appendicitis TISSUE SUBMITTED: Appendix MICROSCOPIC DIAGNOSIS Appendix, appendectomy: Acute necrotizing appendicitis. Acute serositis. AM:fabio 03/28/2023 MICROSCOPIC DESCRIPTION Slides are reviewed. GROSS DESCRIPTION Received in fixative is one container labeled with the patient's name and designated appendix. The specimen consists of an appendix measuring 7.0 cm in length and up to 1.0 cm in diameter. The attached periappendiceal adipose tissue measures up to 2.0 cm in width. The serosa is covered with heart, purulent exudate. No obvious perforation is identified. The mucosa contains hemorrhagic material. No fecalith is identified. Church Organist sections are submitted in one cassette. / SJ:fabio 03/27/2023 TC:2 CPT: 76006
[2023-03-26] MEDS: Bupivacaine 0.25% 30 ML Vial (22:05)
--- NOTE | 2023-03-26 22:43 | OP.PCM_ITS ---
Report of Operation Date of Procedure: 03/26/23 Pre-Operative Diagnosis: Acute appendicitis Post-Operative Diagnosis: Acute appendicitis Surgery/Procedure Performed:: Laparoscopic appendectomy Description of Surgical Findings:: Inflamed appendix Type of Anesthesia: General/Regional Specimen's removed: Appendix Estimated Blood Loss (mL): 10 Description of Procedure: The patient was brought into the operating room and general anesthesia was induced. The left arm was tucked and the abdomen was prepped and draped in [facility] sterile fashion. A small midline incision was made superior to the umbilicus and deepened to the level of the fascia. The fascia was elevated and incised. The peritoneum was also elevated and incised. A finger sweep was performed and a balloon trocar was placed into the abdomen and inflated. The abdomen was insufflated to 15 mmHg and the camera was inserted and the abdomen was inspected for any injuries upon entering the abdomen. There were none. The patient was placed in Trendelenburg position and a 5 mm ports placed in the left lower quadrant and suprapubic areas under direct visualization. Next using atraumatic bowel graspers the appendix was identified. The appendix was grasped and elevated and Enseal was used to take down the mesoappendix. A stapler was used to come across the base of the appendix. The appendix was then placed in Endo Catch bag and removed through the umbilical incision. The staple line was inspected and found to be hemostatic and intact. The 2 5 mm ports are removed under direct visualization. The balloon trocar was deflated and removed and all the air was removed from the abdomen. The umbilical incision fascia was closed with an 0 Vicryl [id number] suture. The incisions were then irrigated with saline and dried. Local anesthetic was injected into the incision sites. The skin incisions were then closed with interrupted 4-0 Monocryl suture and Steri- Strips. Bandages were applied and the patient was awoken and taken to PACU in stable condition. Patient tolerated the procedure well. Admit VTE Documentation VTE Mechan Device Prophylaxis: SCD's
[2023-03-26] MEDS: Acetaminophen 325 MG Tablet 650 MG PO (23:19)
[2023-03-26] MEDS: 0.9% Normal Saline (1000mL) 1,000 ML 60 ML IV (23:21)
[2023-03-26] MEDS: Sertraline 50 MG Tablet 75 MG PO (23:57)
--- NOTE | 2023-03-27 00:33 | NURSING ---
This patient is a mother and requested a breast pump. This RN provided a single pump for patient. Patient states she has not pumped before, RN offered to show pt how to set up hospital pump and review settings and breast milk collection. pt declined wanting to pump at this time but states she will call for assistance when she is ready. WP phone number left on patients white board in room.
[2023-03-27 01:25] VITALS: BP 104/63; PULSE 79; RESP 16; TEMP 36.7; O2SAT 96
[2023-03-27 03:45] VITALS: BP 89/54; PULSE 86; RESP 16; TEMP 36.4; O2SAT 97
[2023-03-27 05:30] VITALS: BP 102/61; PULSE 64; RESP 16; TEMP 36.6; O2SAT 99
--- NOTE | 2023-03-27 05:53 | NURSING ---
This RN at bedside to set up breast pump. Pt awake at this time but does not desire to pump. Discussed pump settings and how often to pump. Discussed our department coming to see her today and pt verbalized that she would like that. Our department was notified.
[2023-03-27] MEDS: Acetaminophen 325 MG Tablet 650 MG PO ×2 (06:33→11:14)
--- NOTE | 2023-03-27 07:42 | PN.SURG_ITS ---
Subjective Subjective Patient reports she is doing well. She tolerated clear liquids and some cookies last night. She reports less abdominal pain this morning. Objective Data Objective Data Vital Signs: Vital Signs Temp Pulse Resp BP Pulse Ox O2 Del Method 97.9 F 64 16 102/61 99 Room Air 03/27/23 05:30 03/27/23 05:30 03/27/23 05:30 03/27/23 05:30 03/27/23 05:30 03/27/23 05:30 Oxygen Delivery Method Room Air Weight: 165 lb Body Mass Index (BMI) 29.2 Intake & Output: Intake and Output for Last 24 Hours 03/25/23 03/26/23 03/27/23 23:59 23:59 23:59 Intake Total 1700 / 1700 Balance 1700 / 1700 Lab / Micro Data 03/26/23 19:19 03/26/23 19:19 Labs: Laboratory Results - last 24 hr 03/26/23 19:19: WBC 14.0 H, RBC 4.17 L, Hgb 13.1, Hct 39.4, MCV 94.5, MCH 31.4, MCHC 33.2, RDW Std Deviation 41.9, RDW Coeff of Yehuda 12.1, Plt Count 219, MPV 10.1, Immature Gran % (Auto) 0.400, Neut % (Auto) 89.2 H, Lymph % (Auto) 5.3 L, [place] % (Auto) 4.9, Eos % (Auto) 0.0, Baso % (Auto) 0.2, Absolute Neuts (auto) 12.5 H, Absolute Lymphs (auto) 0.74 L, Nucleated RBC % 0, Sodium 139, Potassium 3.6, Chloride 106, Carbon Dioxide 25.0, Anion Gap 8, BUN 14, Creatinine 1.05 H, Estim Creat Clear Calc 63.63, Est GFR (MDRD) Af Amer 78, Est GFR (MDRD) Non-Af 65, BUN/Creatinine Ratio 13.3, Glucose 237 H, Calcium 8.6, Total Bilirubin 0.50, AST 7 L, ALT 17, Alkaline Phosphatase 58, Total Protein 6.9, Albumin 3.8, Globulin 3.1, Albumin/Globulin Ratio 1.2, Serum , Qual NEGATIVE 03/26/23 19:33: Urine Color Yellow, Urine Clarity Sl. Cloudy, Urine pH 5.0, Ur Specific [place] 1.025, Urine Protein 30 H, Urine Glucose (UA) 250 H, Urine Ketones 15 H, Urine Occult Blood Negative, Urine Nitrite Negative, Urine Bilirubin Negative, Urine Urobilinogen Normal, Ur Leukocyte Esterase Negative, Urine RBC 0 SEEN, Urine WBC 0 SEEN, Ur Squamous Epith Cells 10-25 SEEN, Urine Bacteria 0 SEEN, Urine Mucus 0 SEEN Radiography Diagnostic Testing: Radiology Impression Abdomen/Pelvis CT 03/26/23 19:06 IMPRESSION: Acute appendicitis. No free air or fluid collection. Electronically Signed: Keith Mendoza MD at 19:50 EDT Reading Location ID and State: [facility] / [place] Tel , Service support , ADDENDUM: 03/26/232005 IMPRESSION: Acute appendicitis. No free air or fluid collection. N.B. : The above Results were Read Back by Keith Mendoza MD to Zan Meeks MD, and understanding confirmed on 03/26/2023 19:59:21 (ET). Electronically Signed: Keith Mendoza MD at 19:50 EDT Reading Location ID and State: [facility] / [place] Tel , Service support , ADDENDUM: 03/26/232007 IMPRESSION: Acute appendicitis. No free air or fluid collection. N.B. : The above Results were Read Back by Keith Mendoza MD to Zan Meeks MD, and understanding confirmed on 03/26/2023 20:01:22 (ET). Electronically Signed: Keith Mendoza MD at 19:50 EDT Reading Location ID and State: [facility] / [place] Tel , Service support , Rhythm Strip Rhythm Strip: Sinus Rhythm Rate: 85 Ectopy: None Physical Exam Const oriented x3 and no apparent distress Resp normal respiratory effort Cardio regular rate and regular rhythm GI soft to palpation and non-tender Assessment & Plan Assessment/Plan (1) Acute appendicitis: QUALIFIERS: Acute appendicitis type: unspecified acute appendicitis type Qualified Code(s): K35.80 - Unspecified acute appendicitis PLAN: Patient is doing well for laparoscopic appendectomy. I will discharge her home this morning. Mike Beverly MD Pager: [facility] [address] [place] [address], [address] [place] [address] Office:
--- NOTE | 2023-03-27 07:43 | DCINST_ITS ---
Discharge Instructions Diet Discharge Diet: Light diet - advance as tolerated Activity Discharge Activity: May Not Drive (for 2-3 days or while taking narcotic pain medications) and May Shower Dressing / Incision Call your doctor if your incision/area has: Continuous Slow Oozing, Sudden Increased Bleeding, Increased Pain/ Swelling, Increased Redness and Foul Smelling Discharge Call your doctor if you observe: Fever of 101 or Higher Suture Line Care: Avoid Pulling/Pushing and Avoid Pinching/Bending Remove Dressing in: 2 days (Remove clear bandage in 2 days, steri strips in 7-10 days) Cleanse incision/area with: Soap & Water Follow Up Care Please Follow Up With: Mike Beverly MD When: Please call to schedule 2 week follow up appointment at [phone] Test Results: Test results from this visit will be discussed in further detail at your follow- up appointment, if applicable. Discharge Plan Admission Admit Date/Time: 03/26/23 22:44 Attending Provider: Mike Beverly Primary Care Provider: Care Physician,Aysha Primary Discharge Orders/Prescriptions Prescriptions: New acetaminophen 325 mg Tablet 650 mg PO Q4H PRN PRN (Reason: Pain 1-10/Fever) Qty: 0 0RF oxycodone 5 mg Tablet 5 - 10 mg PO Q4H PRN PRN (Reason: Pain Score 4-10) 5 Days Qty: 10 0RF Continued sertraline 50 mg tablet 75 mg PO DAILY Qty: 60 8RF Referrals / Follow Up: Care Physician,No Primary [Primary Care Provider] - Disposition Disposition (needs filled in before D/C Order can be placed): Home, Self Care
[2023-03-27 09:22] VITALS: BP 92/53; PULSE 75; RESP 18; TEMP 37.1; O2SAT 98
--- NOTE | 2023-03-27 09:36 | CASEMGMT ---
Addendum entered by Destiny Benz 03/27/23 11:52: RUSSELL FABIAN back into patient room to discuss patient's PCP choice. Patient states she has decided to choose Dr. Martinez Heart to establish with as her PCP (prefers an afternoon appointment). Patient informed that we will set up her fist appointment for her and add this information to her discharge paperwork. Patient voices understanding and does not voice any further concerns at this time. RUSSELL Pemberton then called Dr. Heart's office and scheduled patient for the first available with Dr. Heart on 06/22/23 at 2pm. This appointment information was added to patient's discharge instructions. Cherrie Pemberton BSN, RN, CM Original Note: RUSSELL FABIAN into pt room, pt reports no PCP, pt agreeable to receiving local healthcare provider directory. Pt wishes for RUSSELL FABIAN to set up appt for her and she prefers afternoons. Pt wants to check with her sister before deciding which PCP. Pt to notify RUSSELL FABIAN when choice made. Pt aware appt will be made and RUSSELL FABIAN will place appt on dc instructions.
--- NOTE | 2023-03-27 09:49 | NURSING ---
IBCLC visit done this AM around 9am. 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 The last shifts RN Rosanne did bring the patient a pump last night but patient reports she did not pump throughout the night only pumped once this morning. Reports her baby does indeed nurse throughout the night though. Denies questions regarding how to use the pump but was unsure how often, states her daughter is coming in to see her now so she was going to nurse her soon. Advised patient that if the child nurses she would not have to pump and that if her hospital stay extends and she doesn't remove milk from the breasts every 3-4 hours that could result in complications so advised use of the pump at those intervals. Patient reports she forsees being able to go home soon but will use the pump again if needed. She reports she is only taking tylenol so is not concerned about medications but reports the Dr might send her home with percocet and we discussed this medication and however again, the patient reports she likely will not take it as her pain has been controlled with Tylenol so far. Denies any further questions at this time, resouces reviewed for post d/c.
[2023-03-27] MEDS: Ceftriaxone 1 GM/50 ML BAG IV (09:50)
--- NOTE | 2023-03-27 10:06 | PHA.DC_ITS ---
Pharmacy [facility] Service has performed discharge medication reconciliation and counseling for this patient. The patient's discharge medication list was reviewed for discrepancies and discrepancies were resolved. The patient was counseled on the following discharge medications and changes in medications for homegoing were reviewed. The Reason for Use, instructions for use, and potential side effects were reviewed for all new medications. The patient's questions regarding all of their medications were answered. 1. Acetaminophen 650 mg PO Q4H PRN pain 1-10/10 and fever 2. Oxycodone 5-10 mg PO Q4H PRN pain 4-10/10 The patient and patient's were able to verbally demonstrate an understanding of their discharge medications. Medications at Discharge Home Medications sertraline 50 mg tablet 75 mg (1.5 x 50 mg) PO DAILY #60 tabs 10/11/22 acetaminophen 325 mg tablet 650 mg (2 x 325 mg) PO Q4H PRN PRN Pain 1-10/Fever #0 tabs 03/27/23 oxycodone 5 mg tablet 5 - 10 mg (1 - 2 x 5 mg) PO Q4H PRN PRN Pain Score 4-10 5 days #10 tabs 03/27/23
[2023-03-27 16:20] VITALS: BP 105/65; PULSE 68; RESP 18; TEMP 37; O2SAT 99
== END 2023-03-27 16:22 | disposition home or self-care (01) ==
LOC: ED 19:54 → MS3 21:06
PROVIDERS: Admitting Provider Surgery; Emergency Provider Emergency Medicine; Visit Provider Surgery
PROC: 0DTJ4ZZ Resection of Appendix, Percutaneous Endoscopic Approach (ICD-10-PCS; CPT 44970; principal; 2023-03-26 21:30)
DX: K35.80 Unspecified acute appendicitis (principal); F31.81 Bipolar II disorder; Z79.899 Other long term (current) drug therapy; F41.9 Anxiety disorder, unspecified
CPT/HCPCS: 44970; 00840; 96374; 74177; 80053; 81001; 84703; 85025; 88304; 93005; 96361; 96365; 96366; 96375; 99221; 99284; J7030; Q9967; A4216; C1760; G0378; J2405

== ENCOUNTER → 2023-06-22 | Outpatient (CLI) | payer BC, MEDICAID, SELFPAY ==
--- OUTSIDE RECORDS SUMMARY | 2023-06-22 14:47 | XMS RPT_ITS | CCD ---
Author Name Unknown Address [address] [place] [address] Organization [facility] Care Team Providers Care Medical Affairs Leader Name Role Phone RUDDY CARBAJAL (KADEN) Unavailable Unavailable NO PRIMARY CARE, Primary Care Unavailable LEROY PENDLETON Attending Unavailable OSCAR SHULTZ Referring Unavailabl e Problems Problem Classification Problem Date Documented Da te Episodic/Chronic Unclassified (1 source) Unknown / UNK(Unknown) Onset: 11-28-2017 Results Test Name Value Interpretation Reference Range Facil ity Encounters Encounter Date Encounter Type Care Provider Facility Start: 03-16-2022 End: 03-16-2022 ambulatory MD NO PRIMARY CARE [facility] Start: 11-28-2017 End: 11-30-2017 Ambulatory RUDDY (TERMINAL CARMAN) [facility] Payers Date Payer Category Payer Unknown [id number] Medicaid [id number] Unknown [id number] Summary Purpose Family History No Family History Records FoundNo Family History Records Found Advance Directives No Advanced Directives Records FoundNo Advanced Directives Records Found Additional Source Comments INFORMATION SOURCE (unrecogn ized section and content) DATE CREATED AUTHOR AUTHOR'S VIJAY ATION 03/26/2022 [facility] FOR RECORDS PERTAINING TO PATIENTS WHO ARE OR HAVE BEEN ENROLLED IN A CHEMICAL DEPENDENCY/SUBSTANCEABUSE PROGRAM, SOME INFORMATION MAY BE OMITTED. This clinical summary was aggregated from multiple sources. Caution should be exercised in using it in the provision of clinical care. This summary normalizes information from multiple sources, and as a consequence, information in this document may materially change the coding, format and clinical context of patient data. In addition, data may be omitted in some cases. CLINICAL DECISIONS SHOULD BE BASED ON THE PRIMARY CLINICAL RECORDS. [facility]. provides no warranty or guarantee of the accuracy or completeness of information in this document.
[2023-06-22 15:21] LABS: Absolute Lymphocyte Count 1.79 X10^3/uL (0.83-4.51); Absolute Neutrophil Count 3.8 X10^3/uL (2.0-7.7); Basophil# 0.02 X10^3/uL; Basophil% 0.3 % (0-1); Eosinophil# 0.08 X10^3/uL; Eosinophils% 1.3 % (0-5); Hematocrit 36.4 % (37-47); Hemoglobin 12.2 g/dL (12.0-15.0); Lymphocyte # 1.79 X10^3/ul (0.83-4.51); Mean Corp Hgb Conc 33.5 g/dL (32-36); Mean Corpuscular Hgb 31.8 pg (27.0-32.0); Mean Corpuscular Volume 94.8 fL (81-99); Mean Platelet Vol. 10.4 fl (6.2-12.0); Monocyte# 0.32 X10^3/uL; Monocyte% 5.4 % (0-10); NRBC Flagged by Analyzer 0 % (0-5); Neutrophil # 3.75 X10^3/uL (2.7-7.7); Neutrophil % 62.8 % (47-70); Platelet Count 206 K/mm3 (150-450); RBC Distribution Width CV 11.9 % (11.6-14.6); Red Blood Count 3.84 M/mm3 (4.2-5.4)
[2023-06-22 16:10] LABS: ALB/GLOB Ratio 1.1 RATIO (0.9-2.4); AST(SGOT) 10 U/L (15-37); Alanine Aminotransfer ALT/SGPT 13 U/L (13-56); Albumin, Serum 3.5 g/dL (3.2-5.0); Alkaline Phosphatase 52 U/L (45-117); Anion Gap 5 (5-15); BUN 16 mg/dL (7-18); BUN/Creat Ratio 29.1 RATIO (10-20); Calcium,Total 8.7 mg/dL (8.5-10.1); Chloride 108 mmol/L (98-107); Cholesterol 187 mg/dL (200); Creatinine, Serum 0.55 mg/dL (0.55-1.02); EST Glomerular Filtration Rate 136 mL/min (>60); Est Glom Filt Rate - Afr Amer 165 mL/min (>60); Globulin 3.1 g/dL (2.2-4.2); Glucose 124 mg/dL (74-106); High Density Lipoprotein 58 mg/dL; Potassium 3.9 mmol/L (3.5-5.1); Protein, Total 6.6 g/dL (6.4-8.2); Sodium Level 138 mmol/L (136-145); Triglycerides 119 mg/dL; Very Low Density Lipoprotein 24 mg/dL (5-40)
[2023-06-22 17:38] LABS: Hemoglobin A1c 5.1 % (3.8-5.6)
== END | disposition home or self-care (01) ==
LOC: BIMLAB 14:25
PROVIDERS: PCP Internal Medicine; Visit Provider Internal Medicine
DX: Z00.00 Encounter for general adult medical examination without abnormal findings (principal); R73.9 Hyperglycemia, unspecified
CPT/HCPCS: 36415; 80053; 80061; 83036; 85025

== ENCOUNTER 2025-01-20 08:29 | Day surgery (SDC) | payer BC, SELFPAY ==
--- NOTE | 2025-01-13 16:04 | PAT.ANESEVAL ---
Pre-Assessment Diagnosis/Proposed Procedure Planned Operative Procedure(s): LAP BILAT SALPINGECTOMY Anesthesia History Anesthesia History - integration lead: Anesthesia History - integration lead Hx Hospitalization No 01/13/25 11:09 Any Problems With Anesthesia No 01/13/25 11:09 Cholinesterase deficiency No 01/13/25 11:09 You/Your Family Experience No 01/13/25 11:09 fever (hyperthermia) with Relationship Recent Exposure to Contagious No 03/26/23 20:50 Disease Does patient have nerve No 01/13/25 11:09 stimulator Patient instructed to have device shut off --Does patient have Pacemaker or ICD? When Was Last Pacemaker Check QUESTION #4 FULL TEXT: You/Your Family Experience fever (hyperthermia) with Anesthesia Last Oral Intake Last Oral intake: Last Oral Intake NPO since Meds taken in AM with sips of water? Meds patient instructed to take am of surgery PONV PONV - integration lead: PONV - integration lead Female Yes 01/13/25 11:09 HX of Motion Sickness No 01/13/25 11:09 HX of N/V After Surgery No 01/13/25 11:09 Non-Smoker Yes 01/13/25 11:09 Duration of Surgery greater No 01/13/25 11:09 than 60 minutes Number of Risk Factors 2 01/13/25 11:09 PONV Score Moderate Risk 01/13/25 11:09 Height & Weight Height & Weight: Anesthesia: Height & Weight Height 5 ft 3 in 01/02/25 11:00 Respiratory Assessment Respiratory Assessment - integration lead: Respiratory Tract Infection Hx - integration lead Hx Respiratory Tract Infection No: ALLERGIES 01/13/25 11:09 STOP Sleep Apnea STOP Sleep Apnea - integration lead: STOP Sleep Apnea - integration lead Hx Hypertension No 01/13/25 11:09 Hx Sleep Apnea No 01/13/25 11:09 CPAP BIPAP Do you snore loudly (louder Yes 01/13/25 11:09 than talking or can be heard Do you often feel tired/ No 01/13/25 11:09 fatigued/ sleepy during daytime? Has anyone observed you stop No 01/13/25 11:09 breathing during sleep? STOP Results Negative 01/13/25 11:09 QUESTION #5 FULL TEXT : Do you snore loudly (louder than talking or can be heard through closed doors)? Tobacco Use History Tobacco Use History - integration lead: Tobacco Use History - integration lead Tobacco Use Smoking Status Never smoker 01/13/25 11:09 Hx Tobacco Use No 01/13/25 11:09 Years Smoking Packs Smoked per Day Smoking Cessation Date was within the last 15 years Hx Smoking Cessation Date Hx Smoking Cessation Counseling Hematologic Medial History Hematologic Hx - integration lead: Hematologic Medical Hx - order caller Hx of Blood Transfusion No 01/13/25 11:09 Hx of Transfusion in last 3 No 01/13/25 11:09 Months Date of Last Transfusion (if within last 3 months) Ever experience any problems No 01/13/25 11:09 with transfusion(s)? Specify any problems Hx of Preganancy in last 3 No 01/13/25 11:09 Months Nurse Filling Out Transfusion DSCHRIBER 01/13/25 11:09 & Questions: Date: 01/13/25 01/13/25 11:09 Time: 11:12 01/13/25 11:09 Patient unable to answer at this time (ie. confused, unrespo /Reproduction History /Reproductive History - integration lead: /Reproductive Hx- integration lead Hx Now No 01/13/25 11:09 Gestational Age (in weeks): EDC: Hx Hx Para Hx Section SAB No 01/13/25 11:09 [facility] Medical History (Updated 01/13/25 @ 11:17 by Indira Moran) Wears glasses Wears contact lenses Anxiety Alcohol use Back pain Heartburn Non-smoker Vaginal delivery Abnormal glucose affecting Hx of depression, currently Bipolar 2 disorder Hx of one miscarriage Depression Home Medications ?Medication ?Instructions ?Recorded ?Last Taken ?Type sertraline 50 mg tablet (Zoloft) 75 mg PO QHS 01/13/25 Unknown History Allergy/AdvReac Type Severity Reaction Status Date / Time No Known Allergies Allergy Verified 01/13/25 11:07 Family History Grandfather Cancer lung Colon cancer Father Myocardial infarction Aunt Cancer lung Surgical History (Updated 01/13/25 @ 11:17 by Indira Moran) History of laparoscopic appendectomy Social History adopted: No household members: spouse and children housing: house number of children: 2 current occupational status: employed 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 current occupational exposures/hazards: No pets and animals: Yes (not managing litterbox) pets and animals: cat(s) and dog(s) history of recent travel: Yes ([place], [place] 01/16/22, [place] in January) out of state: Yes out of country: No sexually active: Yes Smoking Status: Never smoker alcohol intake: former details: social substance use type: does not use well-balanced diet: daily or most days caffeine: Yes (1 cup per day) Type: carbonated beverages and tea during the past year weight has: remained stable what type of physical activity do you participate in: none shahram/taoism: Jehovah'S Witness seatbelt use: always do you feel safe at home: Yes additional social history: Luke- Works at [employer]/fulltime parent Audit: Pertinent Findings Pertinent Findings EKG Perinent findings: Normal sinus rhythm Nonspecific ST and T wave abnormality Abnormal ECG Confirmed by CHAGO CARPENTER MD ([id number]), state editor MOE CABRERA ([id number]) on 03/30/2023 2:29:24 PM Referred By: Confirmed By:CHAGO CARPENTER MD 03/30/23 1426 Recommendation Anesthesia Recommendation Anesthesia recommendation: F/U recommended Follow up Details Consult Recommendation: Yes Consult Rec Details: Cardiology consult for abnormal EKG
--- NOTE | 2025-01-15 09:00 | EKG12_ITS ---
Test Reason : PRE OP Blood Pressure : */* mmHG Vent. Rate : 87 BPM Atrial Rate : 87 BPM P-R Int : 132 ms QRS Dur : 78 ms QT Int : 360 ms P-R-T Axes : 70 77 -19 degrees QTcB Int : 433 ms Normal sinus rhythm ST & T wave abnormality, consider anterolateral ischemia Abnormal ECG Confirmed by GIL BELL, SANTIAGO ([id number]), senior technical editor NOELLE OBANDO ([id number]) on 01/16/2025 1:18:51 PM Referred By: Brea Wilde Confirmed By: SANTIAGO CORDERO MD
[2025-01-15 09:56] LABS: Hematocrit 38.7 % (37-47); Hemoglobin 13.4 g/dL (12.0-15.0); Mean Corp Hgb Conc 34.6 g/dL (32-36); Mean Corpuscular Volume 92.4 fL (81-99); Mean Platelet Vol. 10.1 fl (6.2-12.0); Platelet Count 253 K/mm3 (150-450); RBC Distribution Width CV 12.3 % (11.6-14.6); RBC Distribution Width SD 42.2 fl (35.1-43.9); Red Blood Count 4.19 M/mm3 (4.2-5.4); White Blood Count 7.8 K/mm3 (4.4-11.0)
--- NOTE | 2025-01-15 14:09 | PAT.ANE_ITS ---
Pre-Assessment Diagnosis/Proposed Procedure Planned Operative Procedure(s): LAP BILAT SALPINGECTOMY Anesthesia History Anesthesia History - polls or surveys interviewer: Anesthesia History - polls or surveys interviewer Hx Hospitalization No 01/13/25 11:09 Any Problems With Anesthesia No 01/13/25 11:09 Cholinesterase deficiency No 01/13/25 11:09 You/Your Family Experience No 01/13/25 11:09 fever (hyperthermia) with Relationship Recent Exposure to Contagious No 03/26/23 20:50 Disease Does patient have nerve No 01/13/25 11:09 stimulator Patient instructed to have device shut off --Does patient have Pacemaker or ICD? When Was Last Pacemaker Check QUESTION #4 FULL TEXT: You/Your Family Experience fever (hyperthermia) with Anesthesia Last Oral Intake Last Oral intake: Last Oral Intake NPO since Meds taken in AM with sips of water? Meds patient instructed to take am of surgery PONV PONV - polls or surveys interviewer: PONV - polls or surveys interviewer Female Yes 01/13/25 11:09 HX of Motion Sickness No 01/13/25 11:09 HX of N/V After Surgery No 01/13/25 11:09 Non-Smoker Yes 01/13/25 11:09 Duration of Surgery greater No 01/13/25 11:09 than 60 minutes Number of Risk Factors 2 01/13/25 11:09 PONV Score Moderate Risk 01/13/25 11:09 Height & Weight Height & Weight: Anesthesia: Height & Weight Height 5 ft 3 in 01/02/25 11:00 Respiratory Assessment Respiratory Assessment - polls or surveys interviewer: Respiratory Tract Infection Hx - polls or surveys interviewer Hx Respiratory Tract Infection No: ALLERGIES 01/13/25 11:09 STOP Sleep Apnea STOP Sleep Apnea - polls or surveys interviewer: STOP Sleep Apnea - polls or surveys interviewer Hx Hypertension No 01/13/25 11:09 Hx Sleep Apnea No 01/13/25 11:09 CPAP BIPAP Do you snore loudly (louder Yes 01/13/25 11:09 than talking or can be heard Do you often feel tired/ No 01/13/25 11:09 fatigued/ sleepy during daytime? Has anyone observed you stop No 01/13/25 11:09 breathing during sleep? STOP Results Negative 01/13/25 11:09 QUESTION #5 FULL TEXT : Do you snore loudly (louder than talking or can be heard through closed doors)? 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 Specify any problems Hx of Preganancy in last 3 No 01/13/25 11:09 Months Nurse Filling Out Transfusion DSCHRIBER 01/13/25 11:09 & Questions: Date: 01/13/25 01/13/25 11:09 Time: 11:12 01/13/25 11:09 Patient unable to answer at this time (ie. confused, unrespo /Reproduction History /Reproductive History - polls or surveys interviewer: /Reproductive Hx- polls or surveys interviewer Hx Now No 01/13/25 11:09 Gestational Age (in weeks): EDC: Hx Hx Para Hx Section SAB No 01/13/25 11:09 [facility] Medical History (Updated 01/13/25 @ 11:17 by Indira Moran) Wears glasses Wears contact lenses Anxiety Alcohol use Back pain Heartburn Non-smoker Vaginal delivery Abnormal glucose affecting Hx of depression, currently Bipolar 2 disorder Hx of one miscarriage Depression Home Medications ?Medication ?Instructions ?Recorded ?Last Taken ?Type sertraline 50 mg tablet (Zoloft) 75 mg PO QHS 01/13/25 Unknown History Allergy/AdvReac Type Severity Reaction Status Date / Time No Known Allergies Allergy Verified 01/13/25 11:07 Family History Grandfather Cancer lung Colon cancer Father Myocardial infarction Aunt Cancer lung Surgical History (Updated 01/13/25 @ 11:17 by Indira Moran) History of laparoscopic appendectomy Social History adopted: No household members: spouse and children housing: house number of children: 2 current occupational status: employed 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 current occupational exposures/hazards: No pets and animals: Yes (not managing litterbox) pets and animals: cat(s) and dog(s) history of recent travel: Yes ([place], [place] 01/16/22, [place] in January) out of state: Yes out of country: No sexually active: Yes Smoking Status: Never smoker alcohol intake: former details: social substance use type: does not use well-balanced diet: daily or most days caffeine: Yes (1 cup per day) Type: carbonated beverages and tea during the past year weight has: remained stable what type of physical activity do you participate in: none shahram/taoist: Restorationism seatbelt use: always do you feel safe at home: Yes additional social history: Luke- Works at [employer]/fulltime parent Audit: Pertinent Findings HISTORY of Pertinent Findings History of Pertinent Findings: EKG Pertinent Findings EKG Perinent findings Normal sinus rhythm 01/13/25 16:[address] and T wave abnormality Abnormal ECG Confirmed by CHAGO CARPENTER MD ([id number]), image editor MOE CABRERA ([id number]) on 03/30/2023 2 :29:24 PM Referred By: Confirmed By:CHAGO CARPENTER MD 03/30/23 1429 Pertinent Findings EKG Perinent findings: 01/15/2025 normal sinus rhythm minimally changed from previous EKG 03/26/2023 Recommendation Anesthesia Recommendation Anesthesia recommendation: OPTIMIZED for anesthesia
[2025-01-20] VITALS (9 sets, daily range): BP systolic 95–123; BP diastolic 60–87; PULSE 69–90; RESP 14–18; TEMP 36.1–36.5; O2SAT 96–99; BMI 30.8
[2025-01-20 08:53] LABS: Internal QC Validated? YES +Cl - CLEAR BKGD; Pregnancy, Urine Negative Negative
[2025-01-20 08:54] LABS: Record Kit Lot#,Urine Preg 0000962302
[2025-01-20] MEDS: Lactated Ringers 1,000 ML 15 ML IV (09:02)
--- NOTE | 2025-01-20 09:29 | PCM.PRE.AN2 ---
ASA Classification* ASA Classification ASA Classification: 2 Assessment & Plan Anesthesia* Anesthesia Assessment Anesthesia Assessment: Discussed sedation and/or anesthesia options, risks, benefits, and alternatives with patient/parents/legal guardian/POA. Questions invited. The patient/parents/legal guardian/POA seems to understand and agrees to proceed with anesthesia plan. Reviewed the physical assessment, medical history, allergy history and patient home medications list prior to surgery/procedure/anesthetic and documented any changes. Performed airway and anesthesia risk assessments. Anesthesia Type Anesthesia Type: General History Source History Obtained from:: Patient and Chart Anesthesia Focused Assessment* Temperature: 97.7 F Pulse Rate: 75 Blood Pressure: 113/78 Respiratory Rate: 18 Pulse Ox: 98 Oxygen Delivery Method: Room Air Airway Assessment Mouth opens: 2 cm Mallampati Score: IV Teeth Condition: Intact Neck Range of motion (ROM): Full ROM Labs Anesthesia Preop lab: CBC WBC 7.8 K/mm3 (4.4-11.0) 01/15/25 09:10 01/15/25 RBC 4.19 M/mm3 (4.2-5.4) L 01/15/25 09:10 01/15/25 Hgb 13.4 g/dL (12.0-15.0) 01/15/25 09:10 01/15/25 Hct 38.7 % (37-47) 01/15/25 09:10 01/15/25 Plt Count 253 K/mm3 (150-450) 01/15/25 09:10 01/15/25 CHEMISTRY Potassium 3.9 mmol/L (3.5-5.1) 06/22/23 14:25 06/22/23 Sodium 138 mmol/L (136-145) 06/22/23 14:25 06/22/23 BUN 16 mg/dL (7-18) 06/22/23 14:25 06/22/23 Creatinine 0.55 mg/dL (0.55-1.02) 06/22/23 14:25 06/22/23 Glucose 124 mg/dL (74-106) H 06/22/23 14:25 06/22/23 TSH 0.92 uIU/mL (0.358-3.74) 09/05/21 08:07 09/05/21 COAG HCG, Quant < 1 mIU/mL (1-3) 09/05/21 08:07 09/05/21 Urine Test Negative Negative 01/20/25 08:40 01/20/25 Pre-Assessment Diagnosis/Proposed Procedure Planned Operative Procedure(s): LAP BILAT SALPINGECTOMY Anesthesia History 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 When Was Last Pacemaker Check QUESTION #4 FULL TEXT: You/Your Family Experience fever (hyperthermia) with Anesthesia Last Oral Intake Last Oral intake: Last Oral Intake NPO since 22:00 01/20/25 08:56 Meds taken in AM with sips of No 01/20/25 08:56 water? 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 [employer] [place] Female Yes 01/13/25 11:09 HX of Motion Sickness No 01/13/25 11:09 HX of N/V After Surgery No 01/13/25 11:09 Non-Smoker Yes 01/13/25 11:09 Duration of Surgery greater No 01/13/25 11:09 than 60 minutes Number of Risk Factors 2 01/13/25 11:09 PONV Score Moderate Risk 01/13/25 11:09 Height & Weight Height & Weight: Anesthesia: Height & Weight Height 5 ft 3 in 01/20/25 08:56 Weight: 79 kg 01/20/25 08:56 Body Mass Index (BMI) 30.8 01/20/25 08:56 Respiratory Assessment Respiratory Assessment - managing [employer] [place]: Respiratory Tract Infection Hx - managing partner [employer] [place] Hx Respiratory Tract Infection No: ALLERGIES 01/13/25 11:09 STOP Sleep Apnea STOP Sleep Apnea - managing partner [employer] [place]: STOP Sleep Apnea - managing partner [employer] [place] Hx Hypertension No 01/13/25 11:09 Hx Sleep Apnea No 01/13/25 11:09 CPAP BIPAP Do you snore loudly (louder Yes 01/13/25 11:09 than talking or can be heard Do you often feel tired/ No 01/13/25 11:09 fatigued/ sleepy during daytime? Has anyone observed you stop No 01/13/25 11:09 breathing during sleep? STOP Results Negative 01/13/25 11:09 QUESTION #5 FULL TEXT : Do you snore loudly (louder than talking or can be heard through closed doors)? 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 Specify any problems Hx of Preganancy in last 3 No 01/13/25 11:09 Months Nurse Filling Out Transfusion DSCHRIBER 01/13/25 11:09 & Questions: Date: 01/13/25 01/13/25 11:09 Time: 11:12 01/13/25 11:09 Patient unable to answer at this time (ie. confused, unrespo /Reproduction History /Reproductive History - managing partner [employer] [place]: /Reproductive Hx- managing partner [employer] [place] Hx Now No 01/13/25 11:09 Gestational Age (in weeks): EDC: Hx Hx Para Hx Section SAB No 01/13/25 11:09 Active Medications Active Medications: Current Medications Generic Name Dose Route Start Last Admin Trade Name Freq PRN Reason Stop Dose Admin Lactated Ringer's 1,000 mls @ 15 mls/hr 01/20/25 09:00 01/20/25 09:02 IV 15 mls/hr .Q48H YOBANI Administration PFSH Medical History Wears glasses Wears contact lenses Anxiety Alcohol use Back pain Heartburn Non-smoker Vaginal delivery Abnormal glucose affecting Hx of depression, currently Bipolar 2 disorder Hx of one miscarriage Depression Home Medications ?Medication ?Instructions ?Recorded ?Last Taken ?Type sertraline 50 mg tablet (Zoloft) 75 mg PO QHS 01/13/25 01/19/25 History Allergy/AdvReac Type Severity Reaction Status Date / Time No Known Allergies Allergy Verified 01/20/25 08:55 Family History Grandfather Cancer lung Colon cancer Father Myocardial infarction Aunt Cancer lung Surgical History History of laparoscopic appendectomy Social History adopted: No household members: spouse and children housing: house number of children: 2 current occupational status: employed 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 current occupational exposures/hazards: No pets and animals: Yes (not managing litterbox) pets and animals: cat(s) and dog(s) history of recent travel: Yes ([place], [place] 01/16/22, [place] in January) out of state: Yes out of country: No sexually active: Yes Smoking Status: Never smoker alcohol intake: former details: social substance use type: does not use well-balanced diet: daily or most days caffeine: Yes (1 cup per day) Type: carbonated beverages and tea during the past year weight has: remained stable what type of physical activity do you participate in: none shahram/sikh: Confucianism seatbelt use: always do you feel safe at home: Yes additional social history: Luke- Works at [employer]/fulltime parent Review of Systems (Anesthesia) ROS Narrative System reviewed and no additional complaints, except as documented.
--- NOTE | 2025-01-20 09:52 | PCM.HP.BLA ---
History and Physical Date of Admission: 01/20/25 [facility] [address], [address] [place] [address] OFFICE VISIT Date of Service: 01/02/25 MR#: [id number] Acct: [id number] Name: KARLEE ROTHMAN Rep #: [id number] : 1990 Provider: Dr. 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 Corsets Required: No Is patient in pain?: No Feel stressed/tense/nervous/anxious/difficulty sleeping: not at all Allergies No Known Allergies Allergy (Verified 01/02/25 11:03) Medications ?Medication ?Instructions ?Recorded ?Confirmed ?Type sertraline 50 mg tablet (Zoloft) 75 mg (1.5 x 50 mg) PO DAILY 11/04/24 01/02/25 Rx days #135 tabs Is last menstrual period known: No Post menopausal: No Patient : No : No PFSH Medical History Elevated blood sugar Encounter to establish care Preventative health care Emotional problems Allergies Vaginal delivery Anemia Abnormal glucose affecting Hx of depression, currently Bipolar 2 disorder Hx of one miscarriage Depression Surgical History S/P appendectomy History of laparoscopic appendectomy Family History Grandfather Cancer lung Colon cancerFather Myocardial infarctionAunt Cancer lung Social History adopted: No household members: spouse and children housing: house number of children: 2 current occupational status: employed 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 current occupational exposures/hazards: No pets and animals: Yes (not managing litterbox) pets and animals: cat(s) and dog(s) history of recent travel: Yes ([place], [place] 01/16/22, [place] in January) out of state: Yes out of country: No sexually active: Yes Smoking Status: Never smoker alcohol intake: former details: social substance use type: does not use well-balanced diet: daily or most days caffeine: Yes (1 cup per day) Type: carbonated beverages and tea during the past year weight has: remained stable what type of physical activity do you participate in: none shahram/adventism: Rastafari seatbelt use: always do you feel safe at home: Yes additional social history: Luke- Works at [employer]/fulltime parent HPI BS Details: KARLEE ROTHMAN is a 34 year old who presents for preop visi tplanning sterilization laparosopcic bilateral salpingectomy. Female Reproductive History Menopausal Symptoms: No night sweats History 3 Elective abortions Hx Para 2 Spontaneous abortions 1 Hx # Term Pregnancies 2 Ectopic pregnancies Hx # Pregnancies Multiple births # of living children 2 Past Pregnancies Del. Date Name GA/Weeks Outcome Route Bth Weight Gen Labor Lgth Anesthesia Del Locatn Provider FOB 02/28/20 Tashia 40 live - full term vacuum Female [facility] Chani 08/11/22 Vani 39 live - full term 7#12 Female epidural [facility] Brea Chani Razo Delivery Date: 02/28/20 Last Updated by: Samantha BURNS 40 wks VAVD meternal exhaustion Delivery Date: 08/11/22 Last Updated by: Zakiya Dumont see problem list for complications, and SM IAL girl Vani 39. ROS Const Constitutional: Denies fatigue, night sweats, weight gain or weight loss ENT ENT: Reports system reviewed and no additional complaints, except as documented Cardio Card: Denies chest pain Resp Resp: Denies cough or dyspnea GI GI: Reports as per HPI; Denies abdominal pain, constipation, nausea or vomiting : Denies nipple discharge, urinary frequency, urinary incontinence, urinary hesitancy, urinary urgency, vaginal discharge, vaginal dryness, vaginal odor or vaginal pruritus Musc Musc: Denies arthralgias, back pain or muscle weakness Skin Skin/Breast: Denies alopecia, change in hair, dry skin, breast mass, breast pain, breast skin changes or nipple discharge Neuro Neuro: Reports system reviewed and no additional complaints, except as documented Psych Psych: Reports system reviewed and no additional complaints, except as documented Endo Endo: Denies cold intolerance, excessive sweating, heat intolerance or polydipsia Nuno/Lymph Hematologic/Lymphatic: Denies easy bleeding, Denies easy bruising and Denies lymphadenopathy Exam Const General: cooperative, healthy appearing, comfortable and no acute distress Orientation: alert [facility] Head: normal to inspection and normocephalic Ears: hearing grossly normal bilaterally and external ears normal Nose: external nose normal and nares normal Face and sinus: normal facial exam Neck Neck: normal visual inspection and no lymphadenopathy Thyroid: thyroid normal Chest Chest palpation & inspection: normal inspection of the chest Resp Effort & Inspection: normal respiratory effort Auscultation: clear to auscultation bilaterally Cardio Rate: regular rate Rhythm: regular rhythm Heart Sounds: S1 normal and S2 normal GI Inspection: normal to inspection and non-distended Palpation: soft and no hepatosplenomegaly Musc Other: gross motor intact no deficits, full bilateral strength Skin General: no rashes or lesions noted Neuro General: patient alert, patient awake, moves all extremities and no focal motor deficits Motor: muscle tone normal throughout Extrem General: normal to inspection and no pedal edema Psych Appearance: grossly normal Mental Status: mental status grossly normal Affect: normal affect Speech and Movement: speech and movement normal Coding Level of Care Code No Charge Diagnoses Sterilization Z30.2 Assessment and Plan Assessment and Plan (1) Sterilization: Status: Acute Comment: plan laparoscopic bilateral salpingectomy Plan After discussing the patient's diagnosis and treatment plan options, patient wishes to proceed with surgical management. I have discussed with the patient the risks, benefits, and alternatives of the procedure which include but are not limited to risks of anesthesia, bleeding, infection, possible damage to bowel, bladder, or surrounding vasculature which could lead to additional surgery to evaluate any complications. Patient agrees to procedure and wishes to proceed. ACOG/uptodate references given for additional information regarding procedure. UPDATE- I have seen the patient and performed any clinically relevant updates to the history and physical exam. Brea Wilde MD
--- NOTE | 2025-01-20 10:00 | FALS_PTH ---
PATIENT: KARLEE ROTHMAN [place] [facility] [id number] AGE/SX: 34/F ROOM: RE01/20/[address]: Dr. Brea Wilde MD : 1990 BED: DIS: 01/20/2025 SPEC #: [id number] RECD: 01/20/25 13:15 STATUS: MELYSSA VEGA #: [id number] TRACIE: 01/20/25 10:[address]: Brea Wilde DEPT: SURGICAL PATHOLOGY RECD BY: Abdifatah Do ENTERED: 01/20/25 14:09 SP TYPE: FALL TUBES OTHR DR: Dr. Martinez Heart MD Tissues: A - Fallopian tube Procedures: Surgery Specimen Level II HEADER OPERATION: Laparoscopic salpingectomy PRE-OP DIAGNOSIS: Sterilization TISSUE SUBMITTED: A- Bilateral fallopian tubes MICROSCOPIC DIAGNOSIS A. Bilateral fallopian tubes, salpingectomy: * Benign fallopian tubes with complete cross sections obtained * Benign paratubal cysts MICROSCOPIC DESCRIPTION Slides are reviewed. GROSS DESCRIPTION A. Received in formalin labeled with the patient's name and date of . Designated as bilateral fallopian tubes are 2 undesignated, pink-purple fimbriated fallopian tubes measuring 6.4 x 0.6 cm and 7.2 x 0.6 cm. There are few paratubal cysts of both fallopian tubes, 0.1 cm to 0.2 cm. Workers Compensation Specialist sections are submitted in 2 cassettes. MA 01/20/2025 CPT:65321p1
--- NOTE | 2025-01-20 11:26 | PCM.POST.ANE ---
Anesthesia: Postop Eval I Current Vital Signs Temperature: 97.3 F Pulse Rate: 90 Blood Pressure: 123/78 Respiratory Rate: 14 Pulse Ox: 97 Assessment Airway patent: Yes Spontaneous unlabored respirations: Yes nausea: No Vomiting: No Anesthesia Complication: No Fluid Hydration Crystalloid volume administer (ml): 1,000 Total IV fluid infused: 1,000 Progress Note Anesthesia document: Postop Eval 1 completed: Yes
--- NOTE | 2025-01-20 11:46 | OP.PCM_ITS ---
Problems Associated Problem List Diagnoses (1) Sterilization: Multi Select Codes Urinary/Genital Urinary/Genital CPT Codes: 01501 Laproscopic BS/O Operative Report (Standard) Operative Information Date of Procedure: 01/20/25 Pre-Operative Diagnosis: see problem list Post-Operative Diagnosis: same Surgery/Procedure Performed: laparoscopic bilateral salpingectomy inside sales supervisor: Yes Heading And Priming Operator: Michael Brizuela Tasks completed by news production assistant: Opening & closing, Altering tissue and Insert Trochanter Additional assistant professor of anthropology?: No Type of Anesthesia: General RN Documented Start/Stop Times: Operation Date: 01/20/25 10:00 Case Time Into Pre-Op 01/20/25 08:44 Out of Pre-Op 01/20/25 10:14 Anesthesia Start 01/20/25 10:20 Into Room 01/20/25 10:20 Procedure Start 01/20/25 10:42 Procedure End 01/20/25 11:12 Anesthesia End 01/20/25 11:20 Out of Room 01/20/25 11:20 Into Recovery 01/20/25 11:22 Procedure Start Time: 10:42 Procedure Stop Time: 11:12 Select all DRAINS/GRAFTS/IMPLANTS that apply: None Estimated Blood Loss: 25 Specimen collected: Yes Description of specimen(s) removed: bilateral tubes Description of surgery: Patient was taken in the operating room and was placed under general anesthesia was prepped and draped in normal sterile fashion in the dorsal lithotomy position. Bladder was drained of clear urine and SCDs were on preoperatively. Uterus was sounded and a uterine manipulator was placed after dilating. Attention was then paid to the abdominal portion of the procedure and the umbilicus was elevated with towel clamps and injected with Marcaine and after a 5 mm incision was made and the Veress needle was entered into the abdomen confirmed to be intra-abdominal with a low opening pressure of less than 5 mmHg. Abdomen was insufflated with CO2 gas and a 5 mm optical trocar was placed under direct visualization. suprapubic 5 mm port was placed under direct visualization. Uterus was well visualized and upon inspection of the pelvis bilateral tube seen and WNL. bilateral tubes removed with ligasure device without complication. Excellent hemostasis was noted in the pelvis. Liver and upper abdomen were visualized notably within normal limits and no other gross a bnormalities were seen in the abdomen. All instruments removed from the abdomen after gas was desufflated. Port sites were closed with 3-0 Monocryl Steri's and op sites were applied. All instruments removed from the vagina and patient was awoken and taken recovery in stable condition. Surgical Findings: nl uterus tubes ovaries Complications Complications: No
--- NOTE | 2025-01-20 11:52 | DCINST_ITS ---
Discharge Instructions DC O2, CPAP, BIPAP needs Home O2 Discharge instructions: No Dressing / Incision Discharge Activity: Return to Normal Activity, May Not Drive ( while taking narcotic pain meds, when pain free), May Shower and May Take a Tub Bath (in 7 days) May resume sexual activity in: 1 week Weight Bearing Status: Full weight bearing Dressing / Incision Call your doctor if your incision/area has: Continuous Slow Oozing, Sudden Increased Bleeding, Increased Pain/ Swelling, Increased Redness and Foul Smelling Discharge Call your doctor if you observe: Fever of 101 or Higher, Using more than 1 pad per hour, Shortness of breath, Chest pain and Uncontrolled pain Suture Line Care: Avoid Pulling/Pushing and Avoid Pinching/Bending Remove Dressing in: 1 week (if present) Cleanse incision/area with: Soap & Water and Keep Dressing Clean & Dry Follow Up Care When: Call to make an appointment with your doctor for a fu/incision check in 1- 2 weeks. Test Results: Test results from this visit will be discussed in further detail at your follow- up appointment, if applicable. Discharge Plan Admission Attending Provider: Brea Wilde Primary Care Provider: [facility] Instructions Print Language: Welsh Discharge Orders/Prescriptions Prescriptions: New oxycodone-acetaminophen [Percocet] 5-325 mg tablet 1 tab PO Q4H PRN (Reason: pain) 7 Days Qty: 10 0RF naproxen 500 mg tablet 500 mg PO BID PRN PRN (Reason: Pain) Qty: 30 1RF No Action sertraline [Zoloft] 50 mg tablet 75 mg PO QHS Referrals / Follow Up: [facility] MD [Primary Care Provider] - Disposition Disposition (needs filled in before D/C Order can be placed): Home, Self Care
== END 2025-01-20 13:28 | disposition home or self-care (01) ==
LOC: SDC 08:31 → AC 08:33
PROVIDERS: PCP Internal Medicine; Referring Provider Obstetrics & Gynecology; Visit Provider Obstetrics & Gynecology
PROC: (CPT 58661; principal; 2025-01-20 09:45)
DX: Z30.2 Encounter for sterilization (principal); F31.81 Bipolar II disorder; N83.8 Other noninflammatory disorders of ovary, fallopian tube and broad ligament; F41.9 Anxiety disorder, unspecified; Z79.899 Other long term (current) drug therapy
CPT/HCPCS: 58661; 00840; 36415; 81025; 85027; 86850; 86900; 86901; 88302; 93005; J2405